=== PATIENT | female | born 1965 | race Caucasian/White ===

== ENCOUNTER → 2020-09-30 15:23 | Outpatient (BNVA) | payer OTHER, SELFPAY | PROVIDERS: PCP Internal Medicine; Visit Provider Surgery | DX: Z76.89 Persons encountering health services in other specified circumstances (principal) ==

== ENCOUNTER → 2020-10-06 14:23 | Outpatient (BNVA) | payer OTHER, SELFPAY | PROVIDERS: PCP Physician Assistant; Referring Provider Physician Assistant; Visit Provider Orthopaedic Surgery | DX: Z76.89 Persons encountering health services in other specified circumstances (principal) ==

== ENCOUNTER 2020-10-08 08:05 | Outpatient (REF) | payer OTHER, SELFPAY ==
[2020-10-08 08:37] VITALS: BP 129/81; PULSE 89; RESP 16; TEMP 37; O2SAT 99
[2020-10-08 08:45] VITALS: BMI 24.5
[2020-10-08 09:06] VITALS: PULSE 75; RESP 16; O2SAT 100
--- NOTE | 2020-10-08 09:11 | PM.OP ---
Brief Operative Note Date of Service: 10/08/20 Pre-op diagnosis: Lesion left shoulder Post-op diagnosis: same Procedure: excision of lesion left shoulder Implants: non Surgeon: Carloz Barger MD Anesthesia: local Estimated blood loss (mL): 10 Pathology: other ( lesion left shoulder) Condition: stable Disposition: other ( home)
--- NOTE | 2020-10-08 09:12 | W.PM.OPN ---
Operative Note Operative Note Date of Service: 10/08/20 Narrative: preoperative diagnosis: Lesion left shoulder Postoperative diagnosis: Same Procedure: Excision of lesion left shoulder Surgeon: Carloz Barger MD Indications for procedure: 55-year-old female presenting with a red raised lesion measuring approximately 1 cm in diameter which easily bleeds when lightly touched suggestive of a Pyogenic granuloma. Operative findings: Patient was found to have a 1 cm raised red lesion suggestive of a pyogenic granuloma Specimen: lesion left shoulder Estimated blood loss: 10 cc Complications: None Procedure details: Patient was brought to the minor surgery suite and placed in a supine position. The site of surgery was confirmed by the patient in the left shoulder. After assuring informed consent the skin was prepped with Betadine and draped in a sterile fashion. Local anesthesia consisting of lidocaine 1% with epinephrine was infiltrated in elliptical fashion oriented transversely. An elliptical incision was made including a margin of 0.25 cm on both sides. Incision was carried out through subcutaneous tissue and around the lesion. Lesion was passed off the table and sent to pathology for further examination. After assuring adequate hemostasis with light pressure the skin was closed using interrupted 4 0 nylon sutures. Sterile dressings consisting of 2 x 2 gauze and Tegaderm were then applied. The patient tolerated the procedure well. She was discharged to home in stable condition.
== END 2020-10-08 08:06 | disposition home or self-care (01) ==
LOC: HO.MS 08:05
PROVIDERS: PCP Internal Medicine; Visit Provider Surgery
PROC: (CPT 11402; principal; 2020-10-08 08:30)
DX: L98.9 Disorder of the skin and subcutaneous tissue, unspecified (principal)
CPT/HCPCS: 11402; 88305

== ENCOUNTER 2020-10-20 14:10 | Outpatient (REF) | payer OTHER, SELFPAY ==
--- NOTE | 2020-10-20 14:55 | ECG_ITS ---
Test Reason : PREPROC Blood Pressure : / mmHG Vent. Rate : 070 BPM Atrial Rate : 070 BPM P-R Int : 162 ms QRS Dur : 084 ms QT Int : 414 ms P-R-T Axes : 066 093 061 degrees QTc Int : 447 ms Normal sinus rhythm Rightward axis Borderline ECG When compared with ECG of 16-JAN-2014 07:27, Vent. rate has increased BY 24 BPM Referred By: Zain Woodall Electronically Signed By:Jona Espinoza
[2020-10-20 15:29] LABS: MANUAL DIFF FLAG NO
[2020-10-20 15:41] LABS: Basophils Percent Auto 0.6 % (0-2); Eosinophils Absolute Auto 0.1 X10*3/uL (0.0-0.4); Hematocrit 40.9 % (37-47); Hemoglobin 14.2 g/dl (12.0-16.0); Imm Gran Abs Auto 0.01 X10*3/uL (0.00-0.03); Imm Gran Pct Auto 0.2 % (0.0-0.4); Lymphocytes Absolute Auto 2.5 X10*3/uL (1.2-4.9); Lymphocytes Percent Auto 37.9 % (20-40); Mean Corpuscular HGB Conc 34.7 g/dl (31.0-35.0); Mean Corpuscular Hemoglobin 30.3 pg (27.0-33.0); Mean Corpuscular Volume 87.4 fL (80-98); Mean Platelet Volume 9.8 fL (9.4-12.3); Monocytes Absolute Auto 0.4 X10*3/uL (0.1-1.2); Monocytes Percent Auto 5.7 % (2-11); Neutrophils Absolute Auto 3.6 X10*3/uL (2.0-8.3); Neutrophils Percent Auto 53.6 % (45-73); Platelet Count 258 X10*3/uL (160-400); Red Blood Count 4.68 X10*6/uL (4.20-5.50); Red Cell Distribution Width 11.8 % (11.0-16.0); White Blood Count 6.6 X10*3/uL (4.8-10.8)
[2020-10-20 15:58] LABS: Anion Gap 10 (12-20); Blood Urea Nitrogen 13 mg/dL (9-16); Carbon Dioxide 30 mmol/L (22-29); Chloride 105 mmol/L (96-108); Estimated Glomerular Filt Rate > 60; Glucose Random 84 mg/dL (60-115); Potassium 4.3 mmol/l (3.3-5.1); Sodium 141 mmol/L (135-145)
== END 2020-10-20 14:11 | disposition home or self-care (01) ==
LOC: HO.LAB 14:10
PROVIDERS: Absent Provider Orthopaedic Surgery; PCP Internal Medicine; Referring Provider Internal Medicine; Visit Provider Surgery
DX: Z01.810 Encounter for preprocedural cardiovascular examination (principal); L98.0 Pyogenic granuloma
CPT/HCPCS: 36415; 80048; 85025; 93005

== ENCOUNTER → 2020-11-20 14:14 | Outpatient (BNVA) | payer OTHER, SELFPAY | PROVIDERS: Visit Provider Physician Assistant | DX: Z76.89 Persons encountering health services in other specified circumstances (principal) ==

== ENCOUNTER 2020-12-07 06:46 | Inpatient (IN) | payer OTHER, SELFPAY ==
[2020-11-20 11:52] VITALS: BP 137/79; PULSE 68; RESP 16; BMI 24.7
--- NOTE | 2020-11-20 11:53 | HO.ANESPROP2 ---
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 Unilateral primary osteoarthritis, right hip Family History Family History Father History of pancreatic cancer History of kidney cancer Mother History of cancer of ethmoid sinus Surgical History Surgical History H/O vaginal hysterectomy History of section History of tonsillectomy Hx of colonoscopy Hx of exploratory laparotomy Hx of local excision of skin lesion Hx of wisdom tooth extraction Social History Social History Are you a primary women's health care nurse practitioner to a significant other at home: No Do you presently have visiting nurse or other home services: No Smoking Status: Never smoker Use of substances other than those prescribed or required for medical reasons: No Have you been hit, kicked, punched, or otherwise hurt by someone within the past year? 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 Meds Allergies Allergy/AdvReac Type Severity Reaction Status Date / Time blue dye [BLUE DYE] Allergy Severe ANAPHYLAXIS Verified 11/20/20 13:56 latex [LATEX] Allergy Severe ANAPHYLAXIS Verified 11/20/20 13:56 red dye [RED DYE] Allergy Severe ANAPHYLAXIS Verified 11/20/20 13:56 tree nut [TREE NUT] Allergy Severe ANAPHYLAXIS Verified 11/20/20 13:56 progesterone [PROGESTERONE] Allergy Unknown mental Verified 11/20/20 13:56 confusion FRUIT Allergy Severe ANAPHYLAXIS Uncoded 11/19/20 16:17 GREEN DYE Allergy Severe ANAPHYLAXIS Uncoded 11/19/20 16:17 VEGETABLES,FRESH Allergy Severe ANAPHYLAXIS Uncoded 11/19/20 16:17 Home Medications Medication Instructions Recorded Confirmed Type albuterol sulfate 90 mcg/actuation 1 puff INHALATION Q4-6H PRN 09/23/20 11/19/20 History aerosol inhaler epinephrine 0.3 mg/0.3 mL 0.3 mg IM NEEDED PRN 09/23/20 11/19/20 History injection, auto-injector fluticasone 500 mcg-salmeterol 50 1 inh INHALATION BID 09/23/20 11/19/20 History mcg/dose blistr powdr for inhalation nitroglycerin 0.4 mg sublingual 0.4 mg SUBLINGUAL NEEDED PRN 09/23/20 11/19/20 History tablet Exam Exam Date and Time: November 20, 2020 1153 Pertinent Lab Results Pertinent Lab Results: Laboratory Tests 10/20/20 10/20/20 15:00 15:00 WBC 6.6 Hgb 14.2 Hct 40.9 Plt Count 258 Sodium 141 Potassium 4.3 Chloride 105 Carbon Dioxide 30 H BUN 13 Creatinine 0.69 Narrative Narrative: EKG 10/20/20: Normal sinus rhythm Rightward axis Borderline ECG When compared with ECG of 16-JAN-2014 07:27, Vent. rate has increased BY 24 BPM ECHO 05/2020: LV is nml in size, wall thickness, and systolic function. LVEF 55-60%. No WMA. RV size and function grossly nml. 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 Unilateral primary osteoarthritis, right hip Family History Family History Father History of pancreatic cancer History of kidney cancer Mother History of cancer of ethmoid sinus Surgical History Surgical History H/O vaginal hysterectomy History of section History of tonsillectomy Hx of colonoscopy Hx of exploratory laparotomy Hx of local excision of skin lesion Hx of wisdom tooth extraction Social History Social History Are you a primary women's health care nurse practitioner to a significant other at home: No Do you presently have visiting nurse or other home services: No Smoking Status: Never smoker Use of substances other than those prescribed or required for medical reasons: No Have you been hit, kicked, punched, or otherwise hurt by someone within the past year? 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[employer] Meds Allergies Allergy/AdvReac Type Severity Reaction Status Date / Time blue dye [BLUE DYE] Allergy Severe ANAPHYLAXIS Verified 11/20/20 13:56 latex [LATEX] Allergy Severe ANAPHYLAXIS Verified 11/20/20 13:56 red dye [RED DYE] Allergy Severe ANAPHYLAXIS Verified 11/20/20 13:56 tree nut [TREE NUT] Allergy Severe ANAPHYLAXIS Verified 11/20/20 13:56 progesterone [PROGESTERONE] Allergy Unknown mental Verified 11/20/20 13:56 confusion FRUIT Allergy Severe ANAPHYLAXIS Uncoded 11/19/20 16:17 GREEN DYE Allergy Severe ANAPHYLAXIS Uncoded 11/19/20 16:17 VEGETABLES,FRESH Allergy Severe ANAPHYLAXIS Uncoded 11/19/20 16:17 Home Medications Medication Instructions Recorded Confirmed Type albuterol sulfate 90 mcg/actuation 1 puff INHALATION Q4-6H PRN 09/23/20 11/19/20 History aerosol inhaler epinephrine 0.3 mg/0.3 mL 0.3 mg IM NEEDED PRN 09/23/20 11/19/20 History injection, auto-injector fluticasone 500 mcg-salmeterol 50 1 inh INHALATION BID 09/23/20 11/19/20 History mcg/dose blistr powdr for inhalation nitroglycerin 0.4 mg sublingual 0.4 mg SUBLINGUAL NEEDED PRN 09/23/20 11/19/20 History tablet Assessment and Plan Assessment Anesthesia Assessment: Anesthesia Plan Discussed and Chart Reviewed Final Anesthetic Review NPO: Yes ASA Class: II Final Preanesthetic Review: No Changes in Pt Med Stat, Meds/Allgs Chart Reviewed, Consent Obtained/Reviewed and Anes Risks/Benef Reviewed Procedure Risk: Intermediate Anesthetic Plan Anesthetic Plan: MAC: and Spinal Disposition: Standard PACU
--- NOTE | 2020-11-20 12:35 | XR_ITS ---
EXAMINATION: XR AP PELVIS XR HIP, RIGHT CLINICAL INFORMATION: Right hip pain. Osteoarthritis. COMPARISON: Right hip 04/20/2012. TECHNIQUE: AP pelvis one view. Right hip 2 views. FINDINGS: AP PELVIS: There is severe loss of right hip joint space. Minimal loss of left hip joint space seen with moderate bony osteophyte lateral to the hip joint. SI joints are symmetrical and normal. No pelvic bony abnormality seen. RIGHT HIP: There is severe loss of right hip joint space with subchondral cystic changes, mild flattening of right femoral head with moderate periarticular spurring. No acute fracture or dislocation seen. Mild sclerosis of the acetabulum is seen. The soft tissues are normal. XR/XR hip RT min 2V IMPRESSION: 1. Severe degenerative osteoarthritic changes of the right hip joint with [id number] apposition and subchondral cystic changes with sclerosis. 2. Early degenerative changes of the left hip joint. 3. There is no acute fracture involving pelvis or the hip joints.
--- NOTE | 2020-11-20 12:35 | XR_ITS ---
EXAMINATION: XR AP PELVIS XR HIP, RIGHT CLINICAL INFORMATION: Right hip pain. Osteoarthritis. COMPARISON: Right hip 04/20/2012. TECHNIQUE: AP pelvis one view. Right hip 2 views. FINDINGS: AP PELVIS: There is severe loss of right hip joint space. Minimal loss of left hip joint space seen with moderate bony osteophyte lateral to the hip joint. SI joints are symmetrical and normal. No pelvic bony abnormality seen. RIGHT HIP: There is severe loss of right hip joint space with subchondral cystic changes, mild flattening of right femoral head with moderate periarticular spurring. No acute fracture or dislocation seen. Mild sclerosis of the acetabulum is seen. The soft tissues are normal. XR/XR pelvis 1-2V IMPRESSION: 1. Severe degenerative osteoarthritic changes of the right hip joint with [id number] apposition and subchondral cystic changes with sclerosis. 2. Early degenerative changes of the left hip joint. 3. There is no acute fracture involving pelvis or the hip joints.
[2020-11-21 10:51] LABS: MRSA Nasal PCR NEGATIVE (Negative); SA Nasal PCR POSITIVE (Negative)
[2020-12-07] VITALS (15 sets, daily range): BP systolic 85–130; BP diastolic 54–77; PULSE 51–82; RESP 11–20; TEMP 36.2–36.8; O2SAT 95–100
[2020-12-07 06:46] LABS: COVID-19 Test Negative (Negative)
[2020-12-07] MEDS: oxyCODONE HCl ER 10 MG TAB.ER.12H PO (06:55)
--- NOTE | 2020-12-07 07:02 | MHC.SHP ---
Pre-Procedural Eval Section A The patient is an INPATIENT: No Changes since office visit: No Cold of Flu in the past 2 weeks, No New Medical Problems, No Changes in Medication and No Patient answered all questions The History & Physical has been completed within 30 days and I have reviewed it.: Yes Section B Chief Complaint: S/P R total hip replacement Allergies: Allergies Allergy/AdvReac Type Severity Reaction Status Date / Time blue dye [BLUE DYE] Allergy Severe ANAPHYLAXIS Verified 11/20/20 13:56 latex [LATEX] Allergy Severe ANAPHYLAXIS Verified 11/20/20 13:56 red dye [RED DYE] Allergy Severe ANAPHYLAXIS Verified 11/20/20 13:56 tree nut [TREE NUT] Allergy Severe ANAPHYLAXIS Verified 11/20/20 13:56 progesterone [PROGESTERONE] Allergy Unknown mental Verified 11/20/20 13:56 confusion FRUIT Allergy Severe ANAPHYLAXIS Uncoded 11/19/20 16:17 GREEN DYE Allergy Severe ANAPHYLAXIS Uncoded 11/19/20 16:17 VEGETABLES,FRESH Allergy Severe ANAPHYLAXIS Uncoded 11/19/20 16:17 Plan I have reviewed the history and physical and performed a pertinent physical examination on my patient. No changes have occurred unless specified.
--- NOTE | 2020-12-07 09:15 | P.PCNOP_ITS ---
Brief Operative Note Date of procedure: 12/07/20 Pre-op diagnosis: OA RIGHT HIP Post-op diagnosis: same Procedure: RIGHT BASHIR Anesthesia: spinal Surgeon: Zain Woodall Amphibious Operations Officer: Aliza Brewer Estimated blood loss (mL): 100 Condition: stable Disposition: PACU
--- NOTE | 2020-12-07 10:03 | OP_ITS ---
SURGEON: Zain Woodall MD PREOPERATIVE DIAGNOSIS: Osteoarthritis, right hip. POSTOPERATIVE DIAGNOSIS: Osteoarthritis, right hip. PROCEDURE PERFORMED: Right total hip arthroplasty - Accolade II size 4 x 132 femoral stem, 32 mm standard BIOLOX head, 48 mm Tritanium acetabulum, 32 mm x 0 degree acetabular liner. ESTIMATED BLOOD LOSS: COMPLICATIONS: ANESTHESIA: ASSISTANTS: WELLINGTON Jane. SPECIMENS: CLINICAL NOTE: This lady has had ongoing problem with osteoarthritis involving the right hip. She had failed nonoperative management. Therefore, after explaining the risks, benefits, and alternatives and answering all questions, it was mutually agreed upon to carry out the following procedure. DESCRIPTION OF PROCEDURE: Under spinal anesthetic, the patient was placed in the left lateral decubitus position with the right hip up. The right hip was prepped and draped in standard fashion with the right leg free. Surgical time-out was then performed. The patient was identified, procedure confirmed, site confirmed. Medical analogy and history reviewed. Preoperative antibiotics were given. Tranexamic acid was given as well. Standard DVT prophylaxis was in place. All other items were discussed and agreed upon. Standard anterolateral approach to the hip was carried out, taken down through subcutaneous tissues. Hemostasis was achieved along the way using electrocautery, brought us down to the level of the fascia wilmer, which was divided along the length of the incision. The anterior two-thirds of the abductor musculature was then identified and released through tendon off the greater trochanter and elevated off the capsule down to the level of the acetabulum. Capsulectomy was then performed. The hip was dislocated and the head and neck was then resected according to preoperative templating. We turned our attention to the acetabulum. The remainder of the capsule and labrum was removed. Osteophytes were removed from the superior aspect of the acetabulum. The acetabular fossa was identified. osteotome was used to remove the remainder of the soft tissues. Starting with a 44 mm reamer, it was sequentially reamed up to a 47 mm size. There was good fit and fill. It reached the acetabular fossa. Alignment guide was used to show that the alignment and reaming was appropriate and therefore the final reamer with a 48 was used. There was good circumferential bleeding, fit, and fill, and therefore the 48 mm Tritanium acetabulum was selected and brought up on to the table. The acetabulum was thoroughly irrigated. The permanent component brought up on the table. It was press-fit into place with excellent alignment, fit, and fill. A trial liner with a 0 degree 32 mm poly was put into place and we turned our attention to the femur. Box osteotome was used in standard fashion. T-reamer was used to sound the canal. The broaches were then used from 0 to a 4. At this point, there was excellent fit and fill and rotational alignment. A trial reduction was then performed using the standard 32 mm head. This demonstrated excellent leg lengths, full range of motion, stable in all positions, and therefore the Accolade II size 4 x 132 femoral component with the 32 mm BIOLOX head with the 32 x 0 degree acetabular liner were also selected and brought up on the table. All the trial components were then removed. The acetabulum was thoroughly irrigated. The permanent liner was tapped into place. Following this, the femur was fully irrigated. The component was tapped into place. The Anna taper cleaned and dried. The BIOLOX head placed. The hip was relocated for final time, which demonstrated excellent fit, fill, rotational alignment and stability. The leg lengths were good as well. Therefore, we proceeded to closure. Abductor musculature closed with #2 Dexon. Fascia wilmer closed with #2 Quill suture. Subcutaneous tissue approximated using interrupted 2-0 Dexon. Skin was closed with jose. Sterile dressing was then applied. The patient was then transferred supine to the room bed, then taken to recovery room in good condition. Intraoperatively, there was approximately 100 mL blood loss. Second unit of tranexamic acid was given at the time of closure. There were no complications. MD MELA Neri/MAYRA / [id number]
[2020-12-07] MEDS: ondansetron HCL 4 MG/2 ML VIAL IVPUSH (11:38)
[2020-12-07] MEDS: Lactated Ringers 1,000 ML 100 ML IVCONT (12:42)
[2020-12-07] MEDS: Morphine Sulfate 2 MG/ML CARTRIDGE IVPUSH ×3 (14:09→23:13)
[2020-12-07] MEDS: ceFAZolin Sodium/Dextrose,Iso 2 GM/50 ML PIGGYBACK IV (14:09)
--- NOTE | 2020-12-07 15:06 | PM.IMCN ---
History of Present Illness Data of Consult Service Date: 12/07/20 Requesting physician: Zain Woodall Primary Care Provider: Randal Tanner MD HPI Reason for consult: Medical Management 55-year-old woman admitted by Orthopedic surgery and is status post right total hip arthroplasty. Surgery was unremarkable. Patient has a moderate amount of pain. Patient reports that she was feeling dizzy and lightheaded after receiving morphine. She also had an episode vomiting witnessed during the interview. She was medicated with antiemetics. 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 Unilateral primary osteoarthritis, right hip Family History Father History of pancreatic cancer History of kidney cancer Mother History of cancer of ethmoid sinus Surgical History H/O vaginal hysterectomy History of section History of tonsillectomy Hx of colonoscopy Hx of exploratory laparotomy Hx of local excision of skin lesion Hx of wisdom tooth extraction Social History Household Members: Family Housing: House Are you a primary child care provider to a significant other at home: No Do you presently have visiting nurse or other home services: No Smoking Status: Never smoker Use of substances other than those prescribed or required for medical reasons: No Have you been hit, kicked, punched, or otherwise hurt by someone within the past year? 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 Allergies Allergy/AdvReac Type Severity Reaction Status Date / Time blue dye [BLUE DYE] Allergy Severe ANAPHYLAXIS Verified 12/07/20 11:52 latex [LATEX] Allergy Severe ANAPHYLAXIS Verified 12/07/20 11:52 red dye [RED DYE] Allergy Severe ANAPHYLAXIS Verified 12/07/20 11:52 tree nut [TREE NUT] Allergy Severe ANAPHYLAXIS Verified 12/07/20 11:52 progesterone [PROGESTERONE] Allergy Unknown mental Verified 12/07/20 11:52 confusion FRUIT Allergy Severe ANAPHYLAXIS Uncoded 12/07/20 11:52 GREEN DYE Allergy Severe ANAPHYLAXIS Uncoded 12/07/20 11:52 VEGETABLES,FRESH Allergy Severe ANAPHYLAXIS Uncoded 12/07/20 11:52 Home Medications Medication Instructions Recorded Confirmed Type albuterol sulfate 90 mcg/actuation 1 puff INHALATION Q4-6H PRN 09/23/20 11/19/20 History aerosol inhaler epinephrine 0.3 mg/0.3 mL 0.3 mg IM NEEDED PRN 09/23/20 11/19/20 History injection, auto-injector fluticasone 500 mcg-salmeterol 50 1 inh INHALATION BID 09/23/20 11/19/20 History mcg/dose blistr powdr for inhalation nitroglycerin 0.4 mg sublingual 0.4 mg SUBLINGUAL NEEDED PRN 09/23/20 11/19/20 History tablet Physical Exam Vital Signs and Narrative: Vital Signs: Last Vital Signs Temp 97.8 F 12/07/20 12:22 Pulse 51 12/07/20 12:22 Resp 18 12/07/20 12:22 BP 97/60 12/07/20 10:17 Pulse Ox 100 12/07/20 12:22 Body Mass Index 24.7 Appearing in no acute distress head is normocephalic atraumatic eyes pupils are PERRLA sclera is anicteric mouth throat mucous membranes are intact and moist neck is supple no lymphadenopathy, no JVD noted lung sounds are clear to auscultation heart regular rate rhythm, clear S1, S2 positive bowel sounds, abdomen is soft, nontender neuro patient is alert x3, no focal deficits MSK Right hip dressing dry and intact Results Labs Labs: Laboratory Results - last 24 hr 12/07/20 12/07/20 06:14 06:27 COVID-19 ([facility]) Negative COVID-19 Clin Com See Note Blood Type A Negative Antibody Screen NEGATIVE Assessment and Plan (1) Osteoarthritis of right hip: Qualifiers: Osteoarthritis type: primary Qualified Code(s): M16.11 - Unilateral primary osteoarthritis, right hip Status: Acute 55-year-old woman status post right total hip arthroplasty. Right total hip arthroplasty. Management as per surgical team. Pain management. Dizziness. After receiving a dose of morphine. Likely related to blood pressure drop. Will hold antihypertensives for now, give 500 cc fluid bolus. Give morphine over 1 minute for next doses. Hypertension. Softer blood pressure. Hold amlodipine. Asthma. No exacerbation. Albuterol as needed. DVT prophylaxis with full-dose aspirin. Case discussed with Dr. Wilman Patricia code
[2020-12-07] MEDS: Lactated Ringers 1,000 ML 999 ML IVCONT (15:18)
[2020-12-07 15:28] LABS: Hemoglobin 11.9 g/dl (12.0-16.0)
--- NOTE | 2020-12-07 15:54 | MHC.CM.PN ---
PATIENT REPORTS BEING INDEPENDENT WITH HER ADLS. HCP IS ON FILE AND VERIFIED. CASE MANAGEMENT TO FOLLOW FOR DISCHARGE NEEDS.
--- NOTE | 2020-12-07 16:20 | PC.NURSE ---
PACU assessments entered as late entries as RN was unable to document real time d/t network issues.
[2020-12-07] MEDS: Acetaminophen 325 MG TABLET 650 MG PO ×2 (16:34→22:19)
[2020-12-07] MEDS: oxyCODONE HCl Immed Release 5 MG TABLET 10 MG PO ×2 (16:35→22:19)
[2020-12-07] MEDS: Ketorolac Tromethamine 15 MG/ML VIAL IVPUSH ×2 (17:27→22:19)
[2020-12-07] MEDS: Atorvastatin Calcium 20 MG TABLET PO (22:19)
[2020-12-07] MEDS: 0.9 % Sodium Chloride Flush 3 ML SYRINGE IVFLUSH (23:13)
[2020-12-08] MEDS: Lactated Ringers 1,000 ML 100 ML IVCONT (03:16)
[2020-12-08 03:57] VITALS: BP 114/59; PULSE 89; RESP 20; TEMP 36.8; O2SAT 96
[2020-12-08] MEDS: Ketorolac Tromethamine 15 MG/ML VIAL IVPUSH ×4 (05:47→23:40)
[2020-12-08] MEDS: Acetaminophen 325 MG TABLET 650 MG PO ×4 (05:48→23:40)
[2020-12-08] MEDS: oxyCODONE HCl Immed Release 5 MG TABLET 10 MG PO ×3 (05:48→23:40)
--- NOTE | 2020-12-08 07:00 | XR_ITS ---
EXAMINATION: XR HIP, RIGHT CLINICAL INFORMATION: Postop COMPARISON: Pelvic x-ray with right hip 11/20/2020 TECHNIQUE: Two views of the right hip. FINDINGS: Patient is status post right total hip arthroplasty. Components in expected orientation. There is no periprosthetic fracture. Expected subcutaneous emphysema. Skin jose. There are mild to moderate degenerative changes of the left hip. Small vascular calcifications of the pelvis. XR/XR hip RT w PEL1V IMPRESSION: Expected postoperative appearance of the right hip.
[2020-12-08 07:38] VITALS: BP 103/53; PULSE 87; RESP 18; TEMP 36.8; O2SAT 97
--- NOTE | 2020-12-08 07:53 | PM.PNORT ---
Subjective Subjective Date of Service: 12/08/20 Principal diagnosis: s/p RT BASHIR Interval history: POD 1 s/p RT BASHIR no overnight events, has not been out of bed, she is doing well, pain is tolerable. No concerns. Physical Exam Vital Signs: Vital Signs: Last Vital Signs Temp 98.3 F 12/08/20 07:38 Pulse 87 12/08/20 07:38 Resp 18 12/08/20 07:38 BP 103/53 L 12/08/20 07:38 Pulse Ox 97 12/08/20 07:38 Body Mass Index 24.7 Const: General: cooperative, healthy appearing and no acute distress Resp: Effort & Inspection: normal respiratory effort and able to speak in complete sentences Cardio: Rate: regular rate Peripheral pulses: Peripheral pulses 2+ throughout GI: Palpation (GI): Soft to palpation Skin: General skin exam: no rashes or lesions noted Extrem: Other: Bandage clean , dry and intact, no erythema, no edema, sensation intact. Progress Note: A&P Assessment and plan (1) History of total right hip replacement: Status: Acute Assessment and Plan: Continue pain mgmnt Begin asa dvt ppx begin PT for RT BASHIR Dispo planning-Pending PT eval, pain mgmnt Fall Risk Details Current Medications: Current Medications Generic Name Dose Route Start Last Admin Trade Name Freq PRN Reason Stop Dose Admin Acetaminophen 650 mg 12/07/20 11:00 12/08/20 05:48 Acetaminophen 325 Mg Tablet PO 650 mg Q6H NOELLE Administration Albuterol Sulfate 1 puff 12/07/20 15:04 Albuterol Sulfate 90 Mcg 8 Gm Inhaler INHALE Q4H PRN Shortness Of Breath Or Wheezin Aspirin 325 mg 12/08/20 10:00 Aspirin 325 Mg Tablet PO BID NOELLE Atorvastatin Calcium 20 mg 12/07/20 21:00 12/07/20 22:19 Atorvastatin Calcium 20 Mg Tablet PO 20 mg BEDTIME NOELLE Administration Fluticasone/Vilanterol 1 puff 12/08/20 08:00 Fluticasone/Vilanterol 200/25 Blst.W.Dev INHALE RDAILY NOELLE Lactated Ringer's 1,000 mls @ 100 mls/hr 12/07/20 06:30 12/08/20 03:16 Lr IVCONT 100 mls/hr .Q10H NOELLE Administration Ketorolac Tromethamine 15 mg 12/07/20 11:00 12/08/20 05:47 Ketorolac Tromethamine 15 Mg/Ml Vial IVPUSH 15 mg Q6H NOELLE Administration Morphine Sulfate 2 mg 12/07/20 11:00 12/07/20 23:13 Morphine Sulfate 2 Mg/Ml Cartridge IVPUSH 2 mg Q2H PRN Administration Pain, Severe (Pain Scale 7-10) Naloxone HCl 0.2 mg 12/07/20 11:00 Naloxone Hcl 0.4 Mg/Ml Vial IVPUSH Q2M PRN Excessive sedation or RR < 8 Nitroglycerin 0.4 mg 12/07/20 15:04 Nitroglycerin 0.4 Mg Tab.Subl SUBLINGUAL Q5MX3 PRN Chest Pain Ondansetron HCl 4 mg 12/07/20 11:00 12/07/20 11:38 Ondansetron Hcl 4 Mg/2 Ml Vial IVPUSH 4 mg Q8H PRN Administration Nausea and Vomiting Oxycodone HCl 10 mg 12/07/20 11:00 12/08/20 05:48 Oxycodone Hcl Immed Release 5 Mg Tablet PO 10 mg Q6H NOELLE Administration Sodium Chloride 3 ml 12/07/20 16:00 12/07/20 23:13 0.9 % Sodium Chloride Flush 3 Ml Syringe IVFLUSH 3 ml QSHIFT NOELLE Administration Time Spent With Patient Time: Total time spent is greater than 50% in coordination of care (as documented) at patient's floor/unit and/or counseling patient: Time with patient: less than 15 minutes
[2020-12-08] MEDS: Fluticasone/Vilanterol 200/25 BLST.W.DEV 1 PUFF INHALE (08:00)
[2020-12-08] MEDS: 0.9 % Sodium Chloride Flush 3 ML SYRINGE IVFLUSH ×3 (08:13→23:42)
[2020-12-08] MEDS: Aspirin 325 MG TABLET PO ×2 (08:13→20:24)
[2020-12-08] MEDS: ondansetron HCL 4 MG/2 ML VIAL IVPUSH (09:28)
--- NOTE | 2020-12-08 10:29 | HO.POSTANES ---
Post Anesthesia Evaluation Post Anesthesia Evaluation Vital Signs: Vital Signs Temp Pulse Resp BP Pulse Ox 12/08/20 07:38 98.3 F 87 18 103/53 L 97 12/08/20 03:57 98.2 F 89 20 114/59 L 96 12/07/20 23:25 97.6 F 82 20 103/61 95 Anesthesia: Spinal Mental Status: Awake Pain Control: Satisfactory Nausea/Vomiting: None Hydration: Adequate Anesthesia-Related Issues: No Anes. Related Issues
--- NOTE | 2020-12-08 10:42 | HO.PM.IMPN ---
Subjective Subjective Date of Service: 12/08/20 Interval History: Seen in follow-up following knee surgery, she has been experiencing dizziness that she describes vaguely as who lightheadedness. Blood pressure seems okay this morning. Review of Systems Gen: no fever Resp: no sob, no cough CV: no chest, no DE LEON, no leg edema GI: No n/v, no abd pain Neuro: No confusion, dizziness Physical Exam Vital Signs: Vital Signs: Last Vital Signs Temp 98.3 F 12/08/20 07:38 Pulse 87 12/08/20 07:38 Resp 18 12/08/20 07:38 BP 103/53 L 12/08/20 07:38 Pulse Ox 97 12/08/20 07:38 Body Mass Index 24.7 Const: General: cooperative, healthy appearing and no acute distress Limitations: No language barrier Resp: Effort & Inspection: normal respiratory effort and able to speak in complete sentences Cardio: Rate: regular rate Peripheral pulses: Peripheral pulses 2+ throughout GI: Palpation (GI): Soft to palpation Skin: General skin exam: no rashes or lesions noted Extrem: Other: Bandage clean , dry and intact, no erythema, no edema, sensation intact. Objective Data Current Medications Generic Name Dose Route Start Last Admin Trade Name Freq PRN Reason Stop Dose Admin Acetaminophen 650 mg 12/07/20 11:00 12/08/20 05:48 Acetaminophen 325 Mg Tablet PO 650 mg Q6H NOELLE Administration Albuterol Sulfate 1 puff 12/07/20 15:04 Albuterol Sulfate 90 Mcg 8 Gm Inhaler INHALE Q4H PRN Shortness Of Breath Or Wheezin Aspirin 325 mg 12/08/20 10:00 12/08/20 08:13 Aspirin 325 Mg Tablet PO 325 mg BID NOELLE Administration Atorvastatin Calcium 20 mg 12/07/20 21:00 12/07/20 22:19 Atorvastatin Calcium 20 Mg Tablet PO 20 mg BEDTIME NOELLE Administration Fluticasone/Vilanterol 1 puff 12/08/20 08:00 12/08/20 08:00 Fluticasone/Vilanterol 200/25 Blst.W.Dev INHALE 1 puff RDAILY NOELLE Administration Lactated Ringer's 1,000 mls @ 100 mls/hr 12/07/20 06:30 12/08/20 03:16 Lr IVCONT 100 mls/hr .Q10H NOELLE Administration Ketorolac Tromethamine 15 mg 12/07/20 11:00 12/08/20 05:47 Ketorolac Tromethamine 15 Mg/Ml Vial IVPUSH 15 mg Q6H NOELLE Administration Morphine Sulfate 2 mg 12/07/20 11:00 12/07/20 23:13 Morphine Sulfate 2 Mg/Ml Cartridge IVPUSH 2 mg Q2H PRN Administration Pain, Severe (Pain Scale 7-10) Naloxone HCl 0.2 mg 12/07/20 11:00 Naloxone Hcl 0.4 Mg/Ml Vial IVPUSH Q2M PRN Excessive sedation or RR < 8 Nitroglycerin 0.4 mg 12/07/20 15:04 Nitroglycerin 0.4 Mg Tab.Subl SUBLINGUAL Q5MX3 PRN Chest Pain Ondansetron HCl 4 mg 12/07/20 11:00 12/08/20 09:28 Ondansetron Hcl 4 Mg/2 Ml Vial IVPUSH 4 mg Q8H PRN Administration Nausea and Vomiting Oxycodone HCl 10 mg 12/07/20 11:00 12/08/20 05:48 Oxycodone Hcl Immed Release 5 Mg Tablet PO 10 mg Q6H NOELLE Administration Sodium Chloride 3 ml 12/07/20 16:00 12/08/20 08:13 0.9 % Sodium Chloride Flush 3 Ml Syringe IVFLUSH 3 ml QSHIFT NOELLE Administration Labs CBC & Chem 7: 12/08/20 05:50 Assessment and Plan (1) History of total right hip replacement: Status: Acute (2) Osteoarthritis of right hip: Status: Acute Assessment and Plan: 55-F with HTN, HLD s/p right hip athroplasty now with dizziness Dizziness with n/v, likely related to morphine Right total hip arthroplasty. Management as per surgical team including DVT prophylaxis, pain med Hypertension. Hold BP meds for now Asthma. No exacerbation. Albuterol as needed.
[2020-12-08 11:26] VITALS: BP 91/53; PULSE 79; RESP 18; TEMP 35.7; O2SAT 97
[2020-12-08 15:36] VITALS: BP 95/55; PULSE 76; RESP 18; TEMP 36.7; O2SAT 98
[2020-12-08 19:30] VITALS: BP 91/46; PULSE 79; RESP 16; TEMP 37; O2SAT 95
[2020-12-08] MEDS: Atorvastatin Calcium 20 MG TABLET PO (20:23)
[2020-12-08 23:11] VITALS: BP 97/54; PULSE 84; RESP 18; TEMP 36.8; O2SAT 99
[2020-12-09 03:23] VITALS: BP 95/54; PULSE 75; RESP 16; TEMP 36.9; O2SAT 98
[2020-12-09] MEDS: Acetaminophen 325 MG TABLET 650 MG PO ×2 (05:04→11:24)
[2020-12-09] MEDS: oxyCODONE HCl Immed Release 5 MG TABLET 10 MG PO (05:05)
[2020-12-09] MEDS: Ketorolac Tromethamine 15 MG/ML VIAL IVPUSH ×2 (05:05→11:20)
[2020-12-09] MEDS: 0.9 % Sodium Chloride Flush 3 ML SYRINGE IVFLUSH (05:06)
[2020-12-09] MEDS: Fluticasone/Vilanterol 200/25 BLST.W.DEV 1 PUFF INHALE (07:58)
[2020-12-09 08:00] VITALS: BP 90/56; PULSE 83; RESP 18; TEMP 36.6; O2SAT 94
[2020-12-09 08:12] LABS: MANUAL DIFF FLAG NO
--- NOTE | 2020-12-09 08:17 | P.DS_ITS ---
DS: Providers Provider Date of Service: 12/09/20 Date of admission: 12/07/20 06:46 Primary care physician: Randal Tanner MD Consults: 12/07/20 11:00 Consult to Hospitalist Routine Consulting Provider: Hospitalist DS: Diagnosis Discharge Diagnosis (1) History of total right hip replacement: Status: Acute Problem details: Ms. Ortiz presented to the office today right hip pain, she was found to have osteoarthritis of the right hip. She had failed all conservative measures and continued to have difficulty with daily activities; therefore she consented to move forward with RT BASHIR. DS: Medications Discharge Medications Home Medications: Home Medications Medication Instructions Recorded Confirmed albuterol sulfate 90 mcg/actuation 1 puff INHALATION Q4-6H PRN 09/23/20 11/19/20 aerosol inhaler epinephrine 0.3 mg/0.3 mL 0.3 mg IM NEEDED PRN 09/23/20 11/19/20 injection, auto-injector fluticasone 500 mcg-salmeterol 50 1 inh INHALATION BID 09/23/20 11/19/20 mcg/dose blistr powdr for inhalation nitroglycerin 0.4 mg sublingual 0.4 mg SUBLINGUAL NEEDED PRN 09/23/20 11/19/20 tablet Previous Rx's Medication Instructions Recorded amlodipine 5 mg tablet 5 mg PO DAILY #90 tab 08/18/20 atorvastatin 20 mg tablet 20 mg PO BEDTIME 180 Days #180 tab 08/18/20 acetaminophen 650 mg PO Q6H 30 Days #240 tab 12/09/20 aspirin 325 mg PO BID 30 Days #60 tab 12/09/20 oxycodone 10 mg PO Q6H 7 Days #56 tab 12/09/20 DS: Summary Hospital Course Hospital Course: The patient underwent a successful RT BASHIR, was transferred to PACU and then to the floor to recover. During their stay, their vitals were stable, afebrile at 97.8. Labs were unremarkable, H/H 10.0/29.3. POD 1she was started on ASA for DVT ppx, they also received PT/OT services twice a day. Prior to discharge, their dressing was change, incision clean dry and intact, new Aquacel dressing applied and the plan was to be discharged home with VNA services,. Time Spent with Patient Time attestation: Total time spent providing and/or coordinating discharge services: Discharge coordination time: Greater than 30 minutes Physical Exam Vital Signs: Vital Signs: Last Vital Signs Temp 97.8 F 12/09/20 08:00 Pulse 83 12/09/20 08:00 Resp 18 12/09/20 08:00 BP 90/56 L 12/09/20 08:00 Pulse Ox 94 12/09/20 08:00 Body Mass Index 24.7 Const: General: cooperative, healthy appearing and no acute distress Resp: Effort & Inspection: normal respiratory effort and able to speak in complete sentences Cardio: Rate: regular rate Peripheral pulses: Peripheral pulses 2+ throughout GI: Palpation (GI): Soft to palpation Skin: General skin exam: no rashes or lesions noted Extrem: Other: Right hip incision clean dry and intact. No erythema mild edema, sensation intact DS: Data Data Completed and Pending Completed studies during hospitalization [Text1]: Pending at discharge 12/07/20 08:56 Surgical [PTH] Routine Labs on day of discharge: Laboratory Tests 11/20/20 11/20/20 12/07/20 14:10 Unknown 06:14 Hgb Hct Nasal Screen MRSA (PCR) NEGATIVE Nasal S. aureus Screen POSITIVE A Nasal MRSA/S.aureus Interp SEE NOTE COVID-19 ([facility]) Negative COVID-19 Clin Com See Note Blood Type A Negative Antibody Screen NEGATIVE 12/07/20 12/07/20 12/08/20 06:27 15:16 05:50 Hgb 11.9 L 10.0 L Hct 35.0 L 30.0 L Nasal Screen MRSA (PCR) Nasal S. aureus Screen Nasal MRSA/S.aureus Interp COVID-19 ([facility]) COVID-19 Clin Com Blood Type A Negative Antibody Screen NEGATIVE Discharge Plan Discharge Patient Disposition: Home Health Service Referrals: Aliza Brewer PA-C [Physician [employer]] - (12/23/20 1:00) Discharge Medications: New acetaminophen 325 mg Tablet 650 mg PO Q6H 30 Days Qty: 240 RF: 0 aspirin 325 mg Tablet 325 mg PO BID 30 Days Qty: 60 RF: 0 oxycodone 5 mg Tablet 10 mg PO Q6H 7 Days Qty: 56 RF: 0 Continued atorvastatin 20 mg tablet 20 mg PO BEDTIME 180 Days Qty: 180 RF: 1 amlodipine 5 mg tablet 5 mg PO DAILY Qty: 90 RF: 1 nitroglycerin 0.4 mg tablet, sublingual 0.4 mg sublingual NEEDED PRN (Reason: Chest Pain) RF: 0 epinephrine 0.3 mg/0.3 mL auto-injector 0.3 mg IM NEEDED PRN (Reason: Anaphylaxis) RF: 0 albuterol sulfate 90 mcg/actuation HFA aerosol inhaler 1 puff inhalation Q4-6H PRN (Reason: Shortness Of Breath Or Wheezing) RF: 0 fluticasone propion-salmeterol 500-50 mcg/dose blister with device 1 inh inhalation BID RF: 0 Discharge Orders: Discharge Order (Routine); Ordered 12/09/20 Ordered By: Aliza Brewer Diet: regular diet Activity on Discharge: Use cane or walker Stand Alone Forms: Patient Portal Discharge page Activity Restrictions/Additional Instructions: * Physical Therapy for Total hip arthroplasty: no precautions, gait training, ROM, strength * Limit stair climbing * No showering, no tub bath-keep dressing clean, dry and intact * No driving x6 weeks * Continue Aspirin 325mg tabs twice a day x 4 weeks * Follow up with [facility] in 2 weeks Care Plan Goals: Restore function of hip Health Concerns: none Plan of Treatment: Physical Therapy Pain management DVT prophylaxis
[2020-12-09 08:32] LABS: Basophils Percent Auto 0.2 % (0-2); Eosinophils Absolute Auto 0.2 X10*3/uL (0.0-0.4); Eosinophils Percent Auto 2.7 % (0-4); Hematocrit 29.3 % (37-47); Imm Gran Abs Auto 0.01 X10*3/uL (0.00-0.03); Imm Gran Pct Auto 0.1 % (0.0-0.4); Lymphocytes Absolute Auto 1.7 X10*3/uL (1.2-4.9); Lymphocytes Percent Auto 19.8 % (20-40); Mean Corpuscular HGB Conc 34.1 g/dl (31.0-35.0); Mean Corpuscular Hemoglobin 30.7 pg (27.0-33.0); Mean Corpuscular Volume 89.9 fL (80-98); Mean Platelet Volume 10.4 fL (9.4-12.3); Monocytes Absolute Auto 0.8 X10*3/uL (0.1-1.2); Monocytes Percent Auto 9.7 % (2-11); Neutrophils Absolute Auto 5.7 X10*3/uL (2.0-8.3); Neutrophils Percent Auto 67.5 % (45-73); Platelet Count 163 X10*3/uL (160-400); Red Blood Count 3.26 X10*6/uL (4.20-5.50); Red Cell Distribution Width 12.3 % (11.0-16.0); White Blood Count 8.5 X10*3/uL (4.8-10.8)
[2020-12-09] MEDS: ondansetron HCL 4 MG/2 ML VIAL IVPUSH (08:58)
--- NOTE | 2020-12-09 09:09 | P.PNIM_ITS ---
Subjective Subjective Date of Service: 12/09/20 Interval History: Seen in follow-up following knee surgery, she has been experiencing dizziness that she describes vaguely as who lightheadedness but feels better this morning. Blood is on the low side this morning. Review of Systems Gen: no fever Resp: no sob, no cough CV: no chest, no DE LEON, no leg edema GI: No n/v, no abd pain Neuro: No confusion, no dizziness Physical Exam Vital Signs: Vital Signs: Last Vital Signs Temp 97.8 F 12/09/20 08:00 Pulse 83 12/09/20 08:00 Resp 18 12/09/20 08:00 BP 90/56 L 12/09/20 08:00 Pulse Ox 94 12/09/20 08:00 Body Mass Index 24.7 Const: General: cooperative, healthy appearing and no acute distress Limi tations: No language barrier Resp: Effort & Inspection: normal respiratory effort and able to speak in complete sentences Cardio: Rate: regular rate Peripheral pulses: Peripheral pulses 2+ throughout GI: Palpation (GI): Soft to palpation Skin: General skin exam: no rashes or lesions noted Extrem: Other: Bandage clean , dry and intact, no erythema, no edema, sensation intact. Objective Data Current Medications Generic Name Dose Route Start Last Admin Trade Name Freq PRN Reason Stop Dose Admin Acetaminophen 650 mg 12/07/20 11:00 12/09/20 05:04 Acetaminophen 325 Mg Tablet PO 650 mg Q6H NOELLE Administration Albuterol Sulfate 1 puff 12/07/20 15:04 Albuterol Sulfate 90 Mcg 8 Gm Inhaler INHALE Q4H PRN Shortness Of Breath Or Wheezin Aspirin 325 mg 12/08/20 10:00 12/08/20 20:24 Aspirin 325 Mg Tablet PO 325 mg BID NOELLE Administration Atorvastatin Calcium 20 mg 12/07/20 21:00 12/08/20 20:23 Atorvastatin Calcium 20 Mg Tablet PO 20 mg BEDTIME NOELLE Administration Fluticasone/Vilanterol 1 puff 12/08/20 08:00 12/09/20 07:58 Fluticasone/Vilanterol 200/25 Blst.W.Dev INHALE 1 puff RDAILY NOELLE Administration Ketorolac Tromethamine 15 mg 12/07/20 11:00 12/09/20 05:05 Ketorolac Tromethamine 15 Mg/Ml Vial IVPUSH 15 mg Q6H NOELLE Administration Morphine Sulfate 2 mg 12/07/20 11:00 12/07/20 23:13 Morphine Sulfate 2 Mg/Ml Cartridge IVPUSH 2 mg Q2H PRN Administration Pain, Severe (Pain Scale 7-10) Naloxone HCl 0.2 mg 12/07/20 11:00 Naloxone Hcl 0.4 Mg/Ml Vial IVPUSH Q2M PRN Excessive sedation or RR < 8 Nitroglycerin 0.4 mg 12/07/20 15:04 Nitroglycerin 0.4 Mg Tab.Subl SUBLINGUAL Q5MX3 PRN Chest Pain Ondansetron HCl 4 mg 12/07/20 11:00 12/09/20 08:58 Ondansetron Hcl 4 Mg/2 Ml Vial IVPUSH 4 mg Q8H PRN Administration Nausea and Vomiting Oxycodone HCl 10 mg 12/07/20 11:00 12/09/20 05:05 Oxycodone Hcl Immed Release 5 Mg Tablet PO 10 mg Q6H NOELLE Administration Sodium Chloride 3 ml 12/07/20 16:00 12/09/20 05:06 0.9 % Sodium Chloride Flush 3 Ml Syringe IVFLUSH 3 ml QSHIFT NOELLE Administration Labs CBC & Chem 7: 12/09/20 07:49 Assessment and Plan (1) History of total right hip replacement: Problem details: Ms. Ortiz presented to the office today right hip pain, she was found to have osteoarthritis of the right hip. She had failed all conservative measures and continued to have difficulty with daily activities; therefore she consented to move forward with RT BASHIR. Status: Acute Assessment and Plan: 55-F with HTN, HLD s/p right hip athroplasty now with dizziness Dizziness with n/v, likely due to med and low BP, Right total hip arthroplasty. Management as per surgical team including DVT prophylaxis, pain med Hypertension. BP on low side 90/56, hold Norvasc. NS bolus Asthma. No exacerbation. Albuterol as nee
[2020-12-09] MEDS: 0.9 % Sodium Chloride 1,000 ML 999 ML IVCONT (10:07)
[2020-12-09] MEDS: Aspirin 325 MG TABLET PO (11:24)
[2020-12-09 11:53] VITALS: BP 101/58; PULSE 89; RESP 18; TEMP 36.8; O2SAT 97
== END 2020-12-09 12:10 | disposition home health service (06) | DRG 324 ==
LOC: HO.SSSA 06:49 → HO.S3 11:16
PROVIDERS: Nurse Practitioner; Nurse Practitioner Acute Care; Physician Assistant; Admitting Provider Orthopaedic Surgery; PCP Internal Medicine; Visit Provider Orthopaedic Surgery
PROC: 0SR90JA Replacement of Right Hip Joint with Synthetic Substitute, Uncemented, Open Approach (ICD-10-PCS; CPT 27130; principal; 2020-12-07 07:30)
DX: M16.11 Unilateral primary osteoarthritis, right hip (principal); I10 Essential (primary) hypertension; J45.909 Unspecified asthma, uncomplicated; Z20.822 Contact with and (suspected) exposure to COVID-19; Z79.51 Long term (current) use of inhaled steroids; Z79.82 Long term (current) use of aspirin; Z79.899 Other long term (current) drug therapy
CPT/HCPCS: 27130; 36415; 72170; 73502; 85014; 85018; 85025; 86850; 86900; 86901; 87635; 87640; 87641; 88304; 88311; 94640; 97110; 97116; 97162; 97166; 97530; 97535; C1776; J0131; J0690; J1885; J2250; J2270; J2405

== ENCOUNTER → 2020-12-23 12:50 | Outpatient (BNVA) | payer OTHER, SELFPAY | PROVIDERS: PCP Internal Medicine; Visit Provider Physician Assistant ==

== ENCOUNTER → 2021-01-13 12:32 | Outpatient (BNVA) | payer OTHER, SELFPAY | PROVIDERS: PCP Internal Medicine; Visit Provider Orthopaedic Surgery ==

== ENCOUNTER 2021-03-02 08:22 | Outpatient (REF) | payer OTHER, SELFPAY ==
--- NOTE | ~2021-03-02 | XR_ITS ---
EXAMINATION: XR HIP, RIGHT CLINICAL INFORMATION: Right hip pain COMPARISON: Right hip x-ray the second 2020 TECHNIQUE: Two views of the right hip. FINDINGS: Pelvic ring is intact. Sacroiliac joints are symmetric. Right total hip arthroplasty in expected orientation without dislocation or periprosthetic fracture. Heterotopic bone formation noted around the acetabulum and inferior to the greater trochanter. There are moderate degenerative changes of the partially visualized left hip. XR/XR hip RT w PEL1V IMPRESSION: No gross abnormality of the total right hip arthroplasty.
== END 2021-03-02 08:23 | disposition home or self-care (01) ==
LOC: HO.HOSX 08:22
PROVIDERS: Visit Provider Orthopaedic Surgery
DX: T84.84XA Pain due to internal orthopedic prosthetic devices, implants and grafts, initial encounter (principal); Z96.641 Presence of right artificial hip joint
CPT/HCPCS: 73502

== ENCOUNTER 2021-03-18 17:00 | Outpatient (RCR) | payer OTHER, SELFPAY ==
--- NOTE | 2020-12-31 16:41 | MHC.PT.EP ---
[facility] [place] [facility] [place] [facility] [place] Office [address] Judah Bernstein [address] [phone] F: [phone] F: [phone] F: [phone] F: [phone] Physical Therapy Plan of Care Date of Evaluation: 12/31/20 Date of Surgery: 12/07/20 Diagnosis: S/P RIGHT THR Assessment: 55 YO FEMALE REF TO PT S/P Rt THR, ANT APPROACH ON 12/07/20- SHE HAD BRIEF HOME VNA SERVICES- Pt HAS NOT BEEN CLEARED TO DRIVE, BUT HAS BEEN ALLOWED TO SLEEP IN [place]. 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 Pt CURRENTLY AMB W A CANE- SHE NOTES SHE HAS BEEN STARTING TO WEAN CANE- SHE DEMON RECIP STAIR MGMT. Pt HAS W PRE-EXISTING NUMB PATCH Rt POSTEROLAT THIGH, WEAKNESS IN CORE/ HIP EXT AND ABD, ESTEFANIA CALF AND HS TIGHTNESS, WFL PELVIC SYMM IN STAND, SHE NOTES HER INCISION IS HEALED AND ONLY A PORTION IS SENSITIVE. HER PAIN IS MOSTLY INCISIONAL AND SOME MUSCULAR ACHE W INCR ACTIVITY. Frequency and Duration: The patient will be seen 2 x WK x 4 WKs Short Term Goals: DECR Rt HIP GIRDLE PAIN TO 1-2/10 IN 2 WKS Pt DEMON WFL ESTEFANIA HS AND DF FLEXIB IN 2 WKS Rt HIP SCAR SENSITIVTY RESOLVED AND WFL MOBILITY IN 2 WKS Prison Goals: Pt INDEP HEP FOR STRENGTHENING Rt LE AND CORE REGION AND SELF-SX MGMT IN 4 WKS Pt DEMON WFL FUNCT SQUAT, FITNESS WALKING, DRIVING- RESUME REG ADLs (improved LEFT BY 10 POINTS, AT EVAL 40/80)W RESPECT TO PRECAUTIONS AND APPROVED BY DR RAINES IN 4 WKS Treatment Plan: Modalities to reduce pain, spasms and effusion. Manual therapy to restore motion and function. Therapeutic exercise to improve strength and flexibility. Neuromuscular re-education for posture and balance. Therapeutic activities to return to functional activities of daily living. Electronically signed by: Marely Floyd, PT Please sign and return to therapist. Thank you for your referral.
--- NOTE | 2021-03-19 09:40 | MHC.PT.DC ---
[facility] [place] [facility] [place] [facility] [place] Office [address] Judah Bernstein [address] [phone] F: [phone] F: [phone] F: [phone] F: [phone] Physical Therapy Discharge Report Diagnosis: S/P RIGHT THR Date of Surgery: 12/07/20 Date of Evaluation: 12/31/20 Date of Discharge: 03/18/21 Treatments to Date: 16 Cancellations to Date: 0 No Shows to Date: 0 Discharge Status: Achieved Goals Improved Function Independent with HEP Discharge Summary: Pt achieved all STG, LTG's. She has returned to work and regular ADLs w/o adverse response, her LEFT score has greatly improved (58/80 today and 40/80). Pt I with HEP - she has residual lateral shift w gait mechanics. Pt motivated to cont w strengthening and incr functional mob upon D/C from PT. Electronically signed by: Marely Floyd,PT Please sign and return to therapist. Thank you for your referral.
== END 2021-03-19 09:39 | disposition other institution (70) ==
LOC: HO.PTCHIC 17:00
PROVIDERS: PCP Internal Medicine; Visit Provider Physician Assistant
DX: Z47.1 Aftercare following joint replacement surgery (principal); Z96.641 Presence of right artificial hip joint
CPT/HCPCS: 97110; 97112; 97140; 97161

== ENCOUNTER 2021-05-03 15:41 | Outpatient (REF) | payer OTHER, SELFPAY ==
--- NOTE | ~2021-05-03 | MM_ITS ---
EXAMINATION: MM SCREENING DIGITAL BREAST TOMOSYNTHESIS, BILATERAL CLINICAL INFORMATION: Screening. Asymptomatic. The lifetime risk of breast cancer based on the Tyrer-Cuzick Model is 11.3%. COMPARISON: Mammography: April 23, 2020 and studies dating back to November 17, 2011 TECHNIQUE: Digital breast tomosynthesis is performed in both the craniocaudal and mediolateral oblique views along with computer-aided detection (CAD). Synthesized 2D images are generated from the tomosynthesis. FINDINGS: There are scattered areas of fibroglandular density (ACR BI-RADS breast composition Category b). There are no significant masses, abnormal calcifications, or other abnormalities. MM/MM tomosynthesis screening BI IMPRESSION: There are no significant changes from prior study. ASSESSMENT: BI-RADS 1: Negative RECOMMENDATION: Routine annual mammography screening. This patient's information was entered into a reminder system with a target due date for their next mammogram.
== END 2021-05-03 15:42 | disposition home or self-care (01) ==
LOC: HO.MAMMO 15:41
PROVIDERS: Visit Provider Internal Medicine
DX: Z12.31 Encounter for screening mammogram for malignant neoplasm of breast (principal)
CPT/HCPCS: 77063; 77067

== ENCOUNTER 2021-12-14 07:44 | Outpatient (REF) | payer OTHER, SELFPAY ==
--- NOTE | ~2021-12-14 | XR_ITS ---
EXAMINATION: XR HIP, RIGHT CLINICAL INFORMATION: Pain. Arthroplasty. COMPARISON: Radiographs pelvis and right hip 03/02/2021, 12/08/2020 TECHNIQUE: AP view pelvis is performed along with AP and frog-lateral projections right hip. FINDINGS: There is right hip arthroplasty. The hardware is intact. There is no fracture, dislocation, osteolysis, or destructive process. No periostitis. Again, there is spurring from the superior aspect right hip greater trochanter. The heterotopic bone at the caudal aspect right greater trochanter is now organized with smooth benign uniform corticated margins. Soft tissue planes are unremarkable. Left hip has osteoarthritic changes with superior hip joint narrowing and mild subchondral sclerosis and bulky osteophytes from the posterior superior left acetabulum. There is spurring from the left hip greater trochanter. Degenerative disc changes are again present lumbar spine, greater at L3-L4 with disc narrowing and bridging right lateral osteophyte. XR/XR hip RT w PEL1V IMPRESSION: 1. Status post right hip arthroplasty. Hardware intact. 2. No destructive process or osteolysis. 3. Degenerative disc changes lumbar spine. Left hip osteoarthritis.
== END 2021-12-14 07:45 | disposition home or self-care (01) ==
LOC: HO.HOSX 07:44
PROVIDERS: Visit Provider Physician Assistant
DX: Z96.641 Presence of right artificial hip joint (principal)
CPT/HCPCS: 73502

== ENCOUNTER 2022-05-06 07:16 | Outpatient (REF) | payer OTHER, SELFPAY ==
--- NOTE | ~2022-05-06 | MM_ITS ---
EXAMINATION: MM SCREENING DIGITAL BREAST TOMOSYNTHESIS, BILATERAL CLINICAL INFORMATION: Screening. Asymptomatic. The lifetime risk of breast cancer based on the Tyrer-Cuzick Model is 11%. COMPARISON: Mammography: 05/03/2021, 04/23/2020, 04/18/2019 TECHNIQUE: Digital breast tomosynthesis is performed in both the craniocaudal and mediolateral oblique views along with computer-aided detection (CAD). Synthesized 2D images are generated from the tomosynthesis. FINDINGS: There are scattered areas of fibroglandular density (ACR BI-RADS breast composition Category b). There are no significant masses, abnormal calcifications, or other abnormalities. Low right axillary tail node on MLO view is stable. There is an intramammary node again suggested mid 3:00 left breast. No architectural abnormality. The contours are smooth. MM/MM tomosynthesis screening BI IMPRESSION: No mammographic evidence of malignancy. ASSESSMENT: BI-RADS 2: Benign RECOMMENDATION: Routine annual mammography screening. This patient's information was entered into a reminder system with a target due date for their next mammogram.
== END 2022-05-06 07:17 | disposition home or self-care (01) ==
LOC: HO.MAMMO 07:16
PROVIDERS: PCP Internal Medicine; Visit Provider Internal Medicine
DX: Z12.31 Encounter for screening mammogram for malignant neoplasm of breast (principal)
CPT/HCPCS: 77063; 77067

== ENCOUNTER 2022-09-06 15:25 | Outpatient (REF) | payer OTHER, SELFPAY ==
--- NOTE | ~2022-09-06 | MM_ITS ---
EXAMINATION: BONE DENSITOMETRY CLINICAL INDICATION: Menopause. COMPARISON: None (current study represents initial baseline exam). TECHNIQUE: Using a Slipstream DXA System (software version: 13.1) manufactured by [employer], dual-energy x-ray absorptiometry was performed of the lumbar spine and left hip. The images are of good technical quality. Summary results are attached. FINDINGS: AP SPINE L1-L4: BMD 1.164 g/cm2, Z-score 0.8, T-score -0.1, normal. LEFT FEMUR, NECK: BMD 0.950 g/cm2, Z-score 0.4, T-score -0.6, normal. LEFT FEMUR, TOTAL: BMD 0.994 g/cm2, Z-score 0.6, T-score -0.1, normal. IDENTIFIED RISK FACTORS: Menopause, hysterectomy, bilateral oophorectomy. HISTORY OF FRACTURE: None listed. MEDICATIONS: None listed. MM/XR DEXA appendicular skeleton IMPRESSION: 1. DIAGNOSIS: Normal bone density based on the lowest T-score value of -0.6 in the femoral neck applying World Health Organization criteria. 2. 10-YEAR FRACTURE RISK PREDICTION, FRAX: According to the guidelines, FRAX calculation should only be performed on patients in the osteopenia bone density category. Therefore, FRAX was not performed on this patient. 3. Treatment Recommendations: NOF guidelines recommend consideration for treatment in postmenopausal women and men age 50 and older presenting with the following: -A hip or vertebral (clinical or morphometric) fracture. -T-score less than or equal to -2.5 at the femoral neck or spine after appropriate evaluation to exclude secondary causes. -Low bone mass at the hip or spine and a 10-year fracture probability by FRAX of greater than or equal to 3% for hip fracture or greater than or equal to 20% for major osteoporotic fracture based on the [place] adapted WHO algorithm. 4. Other Recommendations: All treatment decisions require clinical judgment and consideration of individual patient factors, including patient preferences, comorbidities, previous drug use, risk factors not captured in the FRAX model (e.g. frailty, falls, vitamin D deficiency, increased bone turnover, interval significant decline in bone density) and possible under or overestimation of fracture risk by FRAX. FUTURE SCAN RECOMMENDATION: People with diagnosed cases of osteoporosis or at high risk for fracture should have regular bone mineral density tests. For patients eligible for Medicare, routine testing is allowed once every 2 years. The testing frequency can be increased to one year for patients who have rapidly progressing disease, those who are receiving or discontinuing medical therapy to restore bone mass, or have additional risk factors.
== END 2022-09-06 15:26 | disposition home or self-care (01) ==
LOC: HO.MAMMO 15:25
PROVIDERS: PCP Internal Medicine; Visit Provider Internal Medicine
DX: Z13.820 Encounter for screening for osteoporosis (principal); Z78.0 Asymptomatic menopausal state
CPT/HCPCS: 77081

== ENCOUNTER 2023-05-23 15:36 | Outpatient (REF) | payer OTHER, SELFPAY ==
--- NOTE | ~2023-05-23 | MM_ITS ---
EXAMINATION: MM SCREENING DIGITAL BREAST TOMOSYNTHESIS, BILATERAL CLINICAL INFORMATION: Screening. Asymptomatic. The lifetime risk of breast cancer based on the Tyrer-Cuzick Model is 10.6%. COMPARISON: Mammography: This study is compared with prior exams dating back to 2019. TECHNIQUE: Digital breast tomosynthesis is performed in both the craniocaudal and mediolateral oblique views along with computer-aided detection (CAD). Synthesized 2D images are generated from the tomosynthesis. FINDINGS: There are scattered areas of fibroglandular density (ACR BI-RADS breast composition Category b). There are no significant masses, abnormal calcifications, or other abnormalities. MM/MM tomosynthesis screening BI IMPRESSION: No mammographic evidence of malignancy. ASSESSMENT: BI-RADS BI-RADS 1 - Negative RECOMMENDATION: Routine annual mammography screening. 1 year F/U This examination should not preclude the clinical evaluation of a suspicious palpable abnormality. This patient's information was entered into a reminder system with a target due date for their next mammogram.
== END 2023-05-23 15:37 | disposition home or self-care (01) ==
LOC: HO.MAMMO 15:36
PROVIDERS: Visit Provider Internal Medicine
DX: Z12.31 Encounter for screening mammogram for malignant neoplasm of breast (principal)
CPT/HCPCS: 77063; 77067

== ENCOUNTER → 2023-05-23 15:45 | Outpatient (BNV) | payer OTHER, SELFPAY | PROVIDERS: Visit Provider Radiology Diagnostic Radiology | DX: Z12.31 Encounter for screening mammogram for malignant neoplasm of breast (principal) | CPT/HCPCS: 77063; 77067 ==

== ENCOUNTER 2023-09-09 08:57 | Outpatient (REF) | payer OTHER, SELFPAY ==
[2023-09-09 10:08] LABS: Hematocrit 43.4 % (37.0-47.0); Hemoglobin 14.7 g/dl (12.0-16.0); Mean Corpuscular HGB Conc 33.9 g/dl (31.0-35.0); Mean Corpuscular Hemoglobin 29.5 pg (27.0-33.0); Mean Corpuscular Volume 87.1 fL (80.0-98.0); Mean Platelet Volume 10.4 fL (9.4-12.3); Platelet Count 240 X10*3/uL (160-400); Red Blood Count 4.98 X10*6/uL (4.20-5.50); Red Cell Distribution Width 11.7 % (11.0-16.0); White Blood Count 5.8 X10*3/uL (4.8-10.8)
[2023-09-09 10:10] LABS: Appearance Urine Clear; Color Urine Yellow; Glucose Urine UA Negative (Negative); Leukocyte Esterase Urine Small (1+) (Negative); Nitrite Urine Negative (Negative); UMIC TRIGGER UA YES; Urine Blood Negative (Negative); Urine Ketones Negative (Negative); Urine Protein Negative (Neg-Trace)
[2023-09-09 10:33] LABS: Bacteria Urine None Seen (None Seen); Calcium Oxalate Crystals Urine Present; Hyaline Casts Urine 0-2 /LPF (0-2); RBC Urine 0-2 /HPF (0-2); WBC Urine 0-5 /HPF (0-5)
[2023-09-09 10:37] LABS: Alanine Aminotransferase 25 U/L (0-31); Albumin Level 4.4 g/dL (3.5-5.0); Alkaline Phosphatase 48 U/L (39-117); Anion Gap 10 (12-20); Aspartate Amino Transferase 23 U/L (5-31); Bilirubin Direct 0.2 mg/dL (0.0-0.5); Bilirubin Total 0.6 mg/dL (0.0-1.0); Blood Urea Nitrogen 13 mg/dL (9-16); Calcium 9.4 mg/dL (8.4-10.2); Carbon Dioxide 30 mmol/L (22-29); Chloride 107 mmol/L (96-108); Cholesterol 167 mg/dL (<200); Estimated Glomerular Filt Rate > 60; Glucose Random 85 mg/dL (60-115); HDL Cholesterol 53 mg/dL (>40); LDL Cholesterol Calculated 97 mg/dL (<100); Potassium 3.9 mmol/L (3.3-5.1); Sodium 143 mmol/L (135-145); Total Protein 6.8 g/dL (6.5-8.0); Triglycerides 85 mg/dL (<150)
[2023-09-09 10:43] LABS: Thyroid Stimulating Hormone 0.89 uIU/mL (0.32-4.0)
== END 2023-09-09 08:58 | disposition home or self-care (01) ==
LOC: HO.LAB 08:57
PROVIDERS: PCP Internal Medicine; Visit Provider Internal Medicine
DX: Z00.00 Encounter for general adult medical examination without abnormal findings (principal)
CPT/HCPCS: 36415; 80048; 80061; 80076; 81001; 81003; 84443; 85027

== ENCOUNTER 2023-09-14 15:08 | Outpatient (AMB) | payer OTHER, SELFPAY ==
--- NOTE | 2023-09-14 15:10 | A.OFFPC_ITS ---
Vital Signs 09/14/23 15:14 Height 5 ft 4 in Weight 143 lb 8 oz BMI 24.6 BP 100/66 Blood Pressure Location Lt brachial Position Sitting Pulse 81 Pulse Source Pulse Oximeter Pulse Oximetry (%) 98 Oxygen Delivery Method Room Air Intake Visit Reasons: phy Intake Note: Patient is here today for a physical. 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: Not Required per policy Accompanied by: Self / Same As Patient Allergies blue dye [BLUE DYE] Allergy (Severe, Verified 09/15/23 12:24) ANAPHYLAXIS latex [LATEX] Allergy (Severe, Verified 09/15/23 12:24) ANAPHYLAXIS red dye [RED DYE] Allergy (Severe, Verified 09/15/23 12:24) ANAPHYLAXIS tree nut [TREE NUT] Allergy (Severe, Verified 09/15/23 12:24) ANAPHYLAXIS progesterone [PROGESTERONE] Allergy (Unknown, Verified 09/15/23 12:24) mental confusion FRUIT Allergy (Severe, Uncoded 09/15/23 12:24) ANAPHYLAXIS GREEN DYE Allergy (Severe, Uncoded 09/15/23 12:24) ANAPHYLAXIS VEGETABLES,FRESH Allergy (Severe, Uncoded 09/15/23 12:24) ANAPHYLAXIS Medication List - Last Reconciled 09/15/23 by Randal Tanner MD albuterol sulfate 90 mcg/actuation 1 inh inhalation Q4-6H PRN amlodipine 5 mg PO DAILY atorvastatin 20 mg PO BEDTIME epinephrine 0.3 mg (0.3 mL) IM NEEDED PRN estradiol 0.01%(0.1mg/gram) vaginal fluticasone propion-salmeterol 500-50 mcg/dose 1 inh inhalation BID ketoconazole 2% 1 appl topical DAILY nitroglycerin 0.4 mg sublingual Q5M trazodone 50 mg PO BEDTIME PRN Tobacco use date assessed: 09/14/23 Dental Screening Dental Screen Date: 09/14/23 Did you have a dental visit in the last 12 months?: Yes Did you have a dental problem in the last 6 months where you did not have access to dental care?: No Was dental information given to patient?: Patient has dentist HPI phy HPI Details 58-year-old female presents to the offic e requesting an annual physical. Patient has had a right hip replacement. She is now experiencing discomfort and pain in the left hip. She was told she had arthritis in the left hip and would need a replacement in due course. She would like to get an orthopedic appointment. Patient is unable to sleep well at night. She goes to bed at 10 or 23:00 and gets up within a few hours. She is unable to go back to bed. She is tired and irritable due to lack of sleep. Reports no anxiety or depression. [facility] Medical History Severe allergy to latex Asthma History of blood transfusion LVH (left ventricular hypertrophy) History of arteriography Osteoarthritis of right hip Unilateral primary osteoarthritis, right hip Surgical History History of hip replacement Hx of exploratory laparotomy Hx of wisdom tooth extraction Hx of local excision of skin lesion Hx of colonoscopy H/O vaginal hysterectomy History of tonsillectomy History of section Family History Father History of pancreatic cancer History of kidney cancer Mother History of cancer of ethmoid sinus Social History Household Members: Family Housing: House Are you a primary tree care foreman to a significant other at home: No Do you presently have visiting nurse or other home services: No Alcohol intake: current Alcohol intake frequency: holidays/special occasions only Patient Tobacco Use Status: Never used Tobacco e-Cigarette/Vaping Use: Never Used Second Hand Smoke Exposure: No service: No Current occupational status: employed 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 1. Little interest or pleasure in doing things: not at all 2. Feeling down, depressed, or hopeless: not at all 3. Trouble falling or staying asleep, or sleeping too much: not at all 4. Feeling tired or having little energy: not at all 5. Poor appetite or overeating: not at all 6. Feeling bad about yourself - or that you are a failure or have let yourself or your family down: not at all 7. Trouble concentrating on things, such as reading the newspaper or watching television: not at all 8. Moving or speaking so slowly that other people could have noticed. Or the opposite - being so fidgety or restless that you have been moving around a lot more than usual: not at all 9. Thoughts that you would be better off or of hurting yourself in some way: not at all Total score: 0 Depression Screening Interpretation: Negative Depression Screening Done: Yes Source: Developed by Drs. Santi Marrero, Enedelia Altman, Amandeep Dietrich and colleagues, with an educational raimundo from [employer]). Thrive Questionnaire Date Thrive assessed: 09/14/23 I am a: Patient What is your living situation today?: I have a steady place to live Within the past 12 months, did the food you bought not last and you didn't have the money to get more?: Never true Within the past 12 months, did you worry whether your food would run out before you got money to buy more?: Never true Do you have trouble paying for medicines?: No Do you have trouble getting transportation to medical appointments?: No Do you have trouble paying your heating and electricity bill?: No Do you have trouble taking care of your child, family member or friend?: No Do you have trouble with day-to-day activities such as bathing, preparing meals, shopping, managing finances, etc.?: No Are you currently unemployed and looking for a job?: No Are you interested in more education?: No Currently or been in a relationship where the following occur: no concerns reported AUDIT C Alcohol Use Questionnaire (AUDIT-C) 1. How often do you have a drink containing alcohol?: Monthly or less Total Score: 1 JACKI-7 AMB Questionnaire JACKI-7 Date JACKI - 7 assessed: 09/14/23 Feeling nervous, anxious, or on edge: 0 = Not at all Not being able to stop or control worryin = Not at all Worrying too much about different things: 0 = Not at all Trouble relaxin = Not at all Being so restless that it is hard to sit still: 0 = Not at all Becoming easily annoyed or irritable: 0 = Not at all Feeling afraid as if something awful might happen: 0 = Not at all Total JACKI-7 score (0-4 normal; 5-9 mild; 10-14 moderate; 15-21 severe): 0 Source: Developed by Drs. Santi Marrero, Enedelia Altman, Amandeep Dietrich and colleagues, with an educational raimundo from [employer] Physical exam (Primary Care) Vital Signs: Last Vital Signs Pulse 81 09/14/23 15:14 BP 100/66 09/14/23 15:14 Pulse Ox 98 09/14/23 15:14 Oxygen Delivery Method Room Air 09/14/23 15:14 Care Plan Goal for BP management: Blood pressure is in range. BMI result Body Mass Index 24.6 Tobacco/Smoking Status: Tobacco use Status Tobacco use date assessed 09/14/23 09/14/23 15:19 Patient Tobacco Use Status Never used Tobacco 09/14/23 15:11 e-Cigarette/Vaping Use Never Used 09/14/23 15:11 PHQ-9: PHQ-9 Score PHQ-9: Total score 0 09/14/23 16:09 Depression Screening Interpretation: Negative Thrive Assessment: Date of Thrive Assessment Date Thrive assessed 09/14/23 09/14/23 15:19 Currently or been in a relationship where the following occur: no concerns reported Advance Care Planning discussion: Exists, not on file Date of discussion: 09/14/23 Who was present: Patient Forms completed: Health Care Proxy and MOLST Time spent: 1-15 minutes, not on file Actual minutes spent: 5 Const General: cooperative and healthy appearing Nutritional Appearance: well nourished Orientation/consciousness: patient oriented x3 Limitations: no limitations HENMT Head: Yes normal to inspection Eyes General: appearance normal, both eyes and all related structures Neck Neck: Yes normal visual inspection Chest Chest palpation & inspection: normal palpation of entire chest wall Resp Effort & Inspection: normal respiratory effort Neuro General: patient oriented x3 Assessment and Plan Assessment & Plan (1) Osteoarthritis of hip, unspecified: Code(s): M16.9 - Osteoarthritis of hip, unspecified (2) Annual physical exam: Code(s): Z00.00 - Encounter for general adult medical examination without abnormal findings Plan: Patient is up-to-date on her mammogram. A colonoscopy was done 3 years ago. An appointment for orthopedics has been created. This is to evaluate the left hip. Trazodone for sleep has been ordered. Orders: Referrals Orthopedics Referral M16.9 - Osteoarthritis of hip, unspecified Medications: New ketoconazole 2% 1 appl topical DAILY 30 grams 0RF trazodone 50 mg PO BEDTIME PRN 30 tabs 0RF sleep Coding Level of Care Code New Pt Prev Care 40-64y(21671) Diagnoses Osteoarthritis of hip, unspecified M16.9 Annual physical exam Z00.00 Additional Codes Vital Signs *Quality* - Advance Care Planning discussion: Exists, not on file ([id number]) Vital Signs *Quality* - Time spent: 1-15 minutes, not on file ([id number])
[2023-09-14 15:14] VITALS: BP 100/66; PULSE 81; O2SAT 98; BMI 24.6
== END 2023-09-14 15:39 | disposition home or self-care (01) ==
PROVIDERS: PCP Internal Medicine; Visit Provider Internal Medicine
DX: M16.9 Osteoarthritis of hip, unspecified (principal); Z00.00 Encounter for general adult medical examination without abnormal findings
CPT/HCPCS: 1123F; 1124F; 99386

== ENCOUNTER 2023-10-12 12:39 | Outpatient (REF) | payer OTHER, SELFPAY ==
--- NOTE | ~2023-10-12 | XR_ITS ---
EXAMINATION: XR PELVIS CLINICAL INFORMATION: Pain and unspecified hip. COMPARISON: AP pelvis and right hip radiographs of 12/14/2021 TECHNIQUE: 2 AP views of the pelvis. FINDINGS: Degenerative changes in the imaged lower lumbar spine. Rounded pelvic calcifications are likely vascular. The bones are diffusely demineralized. Redemonstration of right total hip arthroplasty, similar in position. Heterotopic ossification along the lateral aspect and inferior to the right greater trochanter. [id number] degenerative changes left hip with joint space narrowing, subchondral sclerosis and hypertrophic change again seen. XR/XR pelvis 1-2V IMPRESSION: 1. Right total hip arthroplasty is similar in position. 2. [id number] degenerative changes left hip. Correlation with clinical exam recommended to determine further management. If there is concern for fracture or other underlying pathology, MRI could be obtained for further evaluation.
== END 2023-10-12 12:40 | disposition home or self-care (01) ==
LOC: HO.HOSX 12:39
PROVIDERS: Visit Provider Orthopaedic Surgery
DX: M16.12 Unilateral primary osteoarthritis, left hip (principal)
CPT/HCPCS: 72170

== ENCOUNTER 2023-10-12 14:30 | Outpatient (AMB) | payer OTHER, SELFPAY ==
--- NOTE | 2023-10-12 14:51 | A.OFFVIS_ITS ---
Intake Vital Signs 10/12/23 14:57 Height 5 ft 4 in Weight 143 lb BMI 24.5 Intake Visit Reasons: New Prob- Left hip OA Intake Note: Kimberlee is a 58 year old female who presents today for a new problem visit with complaints of left hip pain. Hx of RT BASHIR 12/07/20 KI. Patient reports that she has had left hip pain worsening over the last year. Allergies blue dye [BLUE DYE] Allergy (Severe, Verified 10/12/23 14:54) ANAPHYLAXIS latex [LATEX] Allergy (Severe, Verified 10/12/23 14:54) ANAPHYLAXIS red dye [RED DYE] Allergy (Severe, Verified 10/12/23 14:54) ANAPHYLAXIS tree nut [TREE NUT] Allergy (Severe, Verified 10/12/23 14:54) ANAPHYLAXIS progesterone [PROGESTERONE] Allergy (Unknown, Verified 10/12/23 14:54) mental confusion FRUIT Allergy (Severe, Uncoded 10/12/23 14:54) ANAPHYLAXIS GREEN DYE Allergy (Severe, Uncoded 10/12/23 14:54) ANAPHYLAXIS VEGETABLES,FRESH Allergy (Severe, Uncoded 10/12/23 14:54) ANAPHYLAXIS HPI New Prob- Left hip OA HPI Details Kimberlee is a 58 year old woman who presents with complaints of left hip pain. She complains of pain with daily activity, along with limited motion of her hip. She has difficulty laying flat at times and is unable to cross her legs. She says most of her pain is sciatic in nature and felt on the posterior aspect of her hip. and says this has been worsening for ~1 year now. She occasionally has some pain in her groin. She says most of her pain is not the same as in her right side prior to her right BASHIR. She denies any prior treatment options. She denies any burning or numbness, but says she has some occasional tingling in her leg. She says she is able to walk for short or normal distances without pain, but prolonged walking can be painful for her by the end of the day. She has a hx of a right BASHIR, DOS: 12/07/[address] Woodall. She says she did well following surgery and has no complaints. [facility] Medical History Severe allergy to latex Asthma History of blood transfusion LVH (left ventricular hypertrophy) History of arteriography Osteoarthritis of right hip Unilateral primary osteoarthritis, right hip Surgical History History of hip replacement Hx of exploratory laparotomy Hx of wisdom tooth extraction Hx of local excision of skin lesion Hx of colonoscopy H/O vaginal hysterectomy History of tonsillectomy History of section Family History Father History of pancreatic cancer History of kidney cancer Mother History of cancer of ethmoid sinus Social History Household Members: Family Housing: House Are you a primary hospice spiritual care coordinator to a significant other at home: No Do you presently have visiting nurse or other home services: No Alcohol intake: current Alcohol intake frequency: holidays/special occasions only Comment: pt sleeping Patient Tobacco Use Status: Never used Tobacco e-Cigarette/Vaping Use: Never Used Second Hand Smoke Exposure: No service: No Current occupational status: employed 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 Cognitive needs: No Hearing needs: No Vision needs: Yes (glasses) Review of Systems Const All systems reviewed & are unremarkable except as noted in HPI and below Physical Exam Vital Signs: BMI result Body Mass Index 24.5 Const General: no acute distress, alert and awake Orientation/consciousness: patient oriented x3 HEENT Head: Yes normocephalic and Yes atraumatic Eyes EOM: EOMs intact bilaterally Resp Effort & Inspection: normal respiratory effort and able to speak in complete sentences Cardio Jugular venous distension: no JVD Skin General skin exam: turgor normal Rashes: no rashes Neuro General: patient oriented x3 Extrem Other: mildy + impingement test with FADIR and + Stinchfield nl gait motion of left hip maintained Psych Appearance: grossly normal Affect: normal affect Attitude: cooperative Results Reviewed Results Reviewed: I personally reviewed relevant radiographs moderate left hip OA Right total hip arthroplasty in expected post operative position with no hardware complications or evidence of loosening Assessment & Plan Assessment & Plan (1) Primary osteoarthritis of left hip: Code(s): M16.12 - Unilateral primary osteoarthritis, left hip Plan: Left hip OA with mild symptoms. I discussed her radiographs and symptoms. She is only moderately affected at worst and as such I think arthroplasty is premature. She agrees. COntineu activity as tolerated. If her pain worsens we can re-evaluate. She may return at any time. Plan Scribed for Demond Cabrera MD by Camilo Shannon, quality engineer medical device, on 10/12/23 at 3:10 PM, EST. Orders: Orders XR pelvis 1-2V 10/12/23 M25.559 - Pain in unspecified hip Coding Level of Care Code Est Pt Level 4 (27866) Diagnoses Primary osteoarthritis of left hip M16.12
[2023-10-12 14:57] VITALS: BMI 24.5
== END 2023-10-12 15:50 | disposition home or self-care (01) ==
PROVIDERS: PCP Internal Medicine; Visit Provider Orthopaedic Surgery
DX: M16.12 Unilateral primary osteoarthritis, left hip (principal)
CPT/HCPCS: 99214

== ENCOUNTER 2024-06-07 07:37 | Outpatient (REF) | payer OTHER, SELFPAY ==
--- NOTE | ~2024-06-07 | MM_ITS ---
EXAMINATION: MM SCREENING DIGITAL BREAST TOMOSYNTHESIS, BILATERAL CLINICAL INFORMATION: Screening. Asymptomatic. COMPARISON: Mammography: This study is compared with prior exams dating back to 2019. TECHNIQUE: Digital breast tomosynthesis is performed in both the craniocaudal and mediolateral oblique views along with computer-aided detection (CAD). Synthesized 2D images are generated from the tomosynthesis. FINDINGS: There are scattered areas of fibroglandular density (ACR BI-RADS breast composition Category b). There are no significant masses, abnormal calcifications, or other abnormalities. MM/MM tomosynthesis screening BI IMPRESSION: No mammographic evidence of malignancy. ASSESSMENT: BI-RADS BI-RADS 1 - Negative RECOMMENDATION: Routine annual mammography screening. 1 year F/U This examination should not preclude the clinical evaluation of a suspicious palpable abnormality. This patient's information was entered into a reminder system with a target due date for their next mammogram. Electronically signed by: Mackenzie Romero MD 07/08/2024 11:14 PM EDT
== END 2024-06-07 07:38 | disposition home or self-care (01) ==
LOC: HO.MAMMO 07:37
PROVIDERS: PCP Internal Medicine; Visit Provider Internal Medicine
DX: Z12.31 Encounter for screening mammogram for malignant neoplasm of breast (principal)
CPT/HCPCS: 77063; 77067

== ENCOUNTER → 2024-06-07 08:00 | Outpatient (BNV) | payer OTHER, SELFPAY | PROVIDERS: PCP Internal Medicine; Visit Provider Radiology Diagnostic Radiology | DX: Z12.31 Encounter for screening mammogram for malignant neoplasm of breast (principal) | CPT/HCPCS: 77063; 77067 ==

== ENCOUNTER 2024-09-19 15:16 | Outpatient (AMB) | payer OTHER, SELFPAY ==
--- NOTE | 2024-09-19 15:18 | MHC.PC.OV ---
Vital Signs 09/19/24 15:19 Height 5 ft 4 in Weight 155 lb 2 oz BMI 26.6 BP 110/68 Blood Pressure Location Lt brachial Position Sitting Pulse 76 Pulse Source Pulse Oximeter Pulse Oximetry (%) 97 Oxygen Delivery Method Room Air Intake Visit Reasons: pe Intake Note: Patient is here today for a physical. Pt decline flu shot today. J2Ee Architect Required: No Lamination Technician: Not Required per policy Accompanied by: Self / Same As Patient Allergies blue dye [BLUE DYE] Allergy (Severe, Verified 09/20/24 13:53) ANAPHYLAXIS latex [LATEX] Allergy (Severe, Verified 09/20/24 13:53) ANAPHYLAXIS red dye [RED DYE] Allergy (Severe, Verified 09/20/24 13:53) ANAPHYLAXIS tree nut [TREE NUT] Allergy (Severe, Verified 09/20/24 13:53) ANAPHYLAXIS progesterone [PROGESTERONE] Allergy (Unknown, Verified 09/20/24 13:53) mental confusion FRUIT Allergy (Severe, Uncoded 09/20/24 13:53) ANAPHYLAXIS GREEN DYE Allergy (Severe, Uncoded 09/20/24 13:53) ANAPHYLAXIS VEGETABLES,FRESH Allergy (Severe, Uncoded 09/20/24 13:53) ANAPHYLAXIS Medication List - Last Reconciled 09/20/24 by Randal Tanner MD albuterol sulfate 90 mcg/actuation 1 inh inhalation Q4-6H PRN amlodipine 5 mg PO DAILY atorvastatin 20 mg PO BEDTIME epinephrine 0.3 mL IM ONCE estradiol 0.01%(0.1mg/gram) vaginal fluticasone propion-salmeterol 500-50 mcg/dose 1 inh inhalation BID ketoconazole 2% 1 appl topical DAILY nitroglycerin 0.4 mg sublingual Q5M trazodone 50 mg PO BEDTIME PRN Tobacco use date assessed: 09/19/24 Dental Screening Dental Screen Date: 09/19/24 Did you have a dental visit in the last 12 months?: Yes Did you have a dental problem in the last 6 months where you did not have access to dental care?: No Was dental information given to patient?: Patient has dentist HPI pe HPI Details 59-year-old female presents to the office requesting an annual physical. In addition, she wishes to discuss the pain associated with her TMJ dysfunction. Patient has been wearing a mouth guard as treatment for the left TMJ dysfunction. However in the past month she is beginning to experience sharp pain in the area, especially with chewing. REPLACED BY [facility] Medical History (Updated 09/20/24 @ 14:13 by Randal Tanner MD) Left-sided temporomandibular joint pain-dysfunction syndrome Severe allergy to latex Asthma History of blood transfusion LVH (left ventricular hypertrophy) History of arteriography Osteoarthritis of right hip Unilateral primary osteoarthritis, right hip Surgical History (Updated 09/20/24 @ 14:15 by Randal Tanner MD) History of hip replacement Hx of exploratory laparotomy Hx of wisdom tooth extraction Hx of local excision of skin lesion Hx of colonoscopy (~08/21/18) H/O vaginal hysterectomy History of tonsillectomy History of section Family History Father History of pancreatic cancer History of kidney cancer Mother History of cancer of ethmoid sinus Social History Household Members: Family Housing: House Are you a primary sub acute care nurse to a significant other at home: No Do you presently have visiting nurse or other home services: No Alcohol intake: current Alcohol intake frequency: holidays/special occasions only Comment: pt sleeping Patient Tobacco Use Status: Never used Tobacco e-Cigarette/Vaping Use: Never Used Second Hand Smoke Exposure: No service: No Current occupational status: employed 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 1. Little interest or pleasure in doing things: not at all 2. Feeling down, depressed, or hopeless: not at all 3. Trouble falling or staying asleep, or sleeping too much: several days 4. Feeling tired or having little energy: not at all 5. Poor appetite or overeating: not at all 6. Feeling bad about yourself - or that you are a failure or have let yourself or your family down: not at all 7. Trouble concentrating on things, such as reading the newspaper or watching television: not at all 8. Moving or speaking so slowly that other people could have noticed. Or the opposite - being so fidgety or restless that you have been moving around a lot more than usual: not at all 9. Thoughts that you would be better off or of hurting yourself in some way: not at all Total score: 1 Depression Screening Interpretation: Positive Depression Screening Done: Yes Source: Developed by Drs. Santi Marrero, Enedelia Altman, Amandeep Dietrich and colleagues, with an educational raimundo from [employer]. Thrive Questionnaire Date Thrive assessed: 09/19/24 I am a: Patient What is your living situation today?: I have a steady place to live Within the past 12 months, did the food you bought not last and you didn't have the money to get more?: Never true Within the past 12 months, did you worry whether your food would run out before you got money to buy more?: Never true Do you have trouble paying for medicines?: No Do you have trouble getting transportation to medical appointments?: No Do you have trouble paying your heating and electricity bill?: No Do you have trouble taking care of your child, family member or friend?: No Do you have trouble with day-to-day activities such as bathing, preparing meals, shopping, managing finances, etc.?: No Are you currently unemployed and looking for a job?: No Are you interested in more education?: No Please select the resources that you would like help with: None Currently or been in a relationship where the following occur: No concerns reported THRIVE Score: 0 AUDIT C Alcohol Use Questionnaire (AUDIT-C) 1. How often do you have a drink containing alcohol?: Monthly or less 2. How many drinks containing alcohol do you have on a typical day when you are drinking?: 1 or 2 3. How often do you have six or more drinks on one occasion?: Never Total Score: 1 JACKI-7 AMB Questionnaire JACKI-7 Date JACKI - 7 assessed: 09/19/24 Feeling nervous, anxious, or on edge: 0 = Not at all Not being able to stop or control worryin = Not at all Worrying too much about different things: 0 = Not at all Trouble relaxin = Not at all Being so restless that it is hard to sit still: 0 = Not at all Becoming easily annoyed or irritable: 0 = Not at all Feeling afraid as if something awful might happen: 0 = Not at all Total JACKI-7 score (0-4 normal; 5-9 mild; 10-14 moderate; 15-21 severe): 0 Source: Developed by Drs. Santi Marrero, Enedelia Altman, Amandeep Dietrich and colleagues, with an educational raimundo from [employer]. Physical exam (Primary Care) Vital Signs: Last Vital Signs Pulse 76 09/19/24 15:19 BP 110/68 09/19/24 15:19 Pulse Ox 97 09/19/24 15:19 Oxygen Delivery Method Room Air 09/19/24 15:19 BMI result Body Mass Index 26.6 Tobacco/Smoking Status: Tobacco use Status Tobacco use date assessed 09/19/24 09/19/24 15:25 Patient Tobacco Use Status Never used Tobacco 09/19/24 15:25 e-Cigarette/Vaping Use Never Used 09/19/24 15:25 PHQ-9: PHQ-9 Score PHQ-9: Total score 1 09/19/24 15:25 Depression Screening Interpretation: Positive Thrive Assessment: Date of Thrive Assessment Date Thrive assessed 09/19/24 09/19/24 15:25 Currently or been in a relationship where the following occur: No concerns reported Const General: cooperative and healthy appearing Nutritional Appearance: well nourished Orientation/consciousness: patient oriented x3 Limitations: no limitations HENMT Other: Left TMJ: Minimal discomfort over the left TMJ, patient experiences discomfort on opening her jaw or moving it sideways. Head: Yes normal to inspection Eyes General: appearance normal, both eyes and all related structures Neck Neck: Yes normal visual inspection Chest Chest palpation & inspection: normal palpation of entire chest wall Resp Effort & Inspection: normal respiratory effort Neuro General: patient oriented x3 Coding Level of Care Code Est Pt Level 3 (46461) Est Pt Prev Care 40-64y(39723) Diagnoses Annual physical exam Z00.00 Left-sided temporomandibular joint pain-dysfunction syndrome M26.622 Assessment & Plan Assessment & Plan (1) Annual physical exam: Code(s): Z00.00 - Encounter for general adult medical examination without abnormal findings Category: Medical Plan: Up-to-date on her mammogram and screening colonoscopy. Blood work has been ordered. (2) Left-sided temporomandibular joint pain-dysfunction syndrome: Code(s): M26.622 - Arthralgia of left temporomandibular joint Category: Medical Plan: Patient was advised to follow-up with her dentist. If her pain symptoms continue she would probably benefit from an intra-articular steroid injection. I will discuss this case with our online health and fitness coach. Orders: Orders Basic Metabolic Panel Today M26.622 - Arthralgia of left temporomandibular joint Complete Blood Count no Diff Today M26.622 - Arthralgia of left temporomandibular joint Liver Panel Today M26.622 - Arthralgia of left temporomandibular joint Lipid Panel Today M26.622 - Arthralgia of left temporomandibular joint Thyroid Stimulating Hormone Today M26.622 - Arthralgia of left temporomandibular joint UA and rflx microscopic Today M26.622 - Arthralgia of left temporomandibular joint Medications: Refilled albuterol sulfate 90 mcg/actuation 1 inh inhalation Q4-6H PRN 25.5 grams 3RF for wheezing fluticasone propion-salmeterol 500-50 mcg/dose 1 inh inhalation BID 60 ea 0RF amlodipine 5 mg PO DAILY 90 tabs 1RF
[2024-09-19 15:19] VITALS: BP 110/68; PULSE 76; O2SAT 97; BMI 26.6
== END 2024-09-19 15:53 | disposition home or self-care (01) ==
PROVIDERS: PCP Internal Medicine; Visit Provider Internal Medicine
DX: Z00.00 Encounter for general adult medical examination without abnormal findings (principal); M26.622 Arthralgia of left temporomandibular joint

== ENCOUNTER → 2024-09-19 15:16 | Outpatient (BNVA) | payer OTHER, SELFPAY | PROVIDERS: PCP Internal Medicine; Visit Provider Internal Medicine ==

== ENCOUNTER 2025-07-14 16:04 | Outpatient (REF) | payer OTHER, SELFPAY ==
--- OUTSIDE RECORDS SUMMARY | 2025-05-27 11:30 | XMS_ITS ---
Author Organization [employer] [facility] Address [address] [place] [address] Care Team Providers Care Pan Washer Hand Name Role Phone TY THAYER Primary Care Provider KIMBERLEY Daley Unavailable [phone] REASON FOR VISIT Annual ECHO VASC TECH Physical Encounters Encounter Location Date Provider Diagnosis [facility] [employer] [address] [place] [address] 05/27/2025 KIMBERLEY ADRIAN Plan Of Treatment Next Appt Details Provider Name:KIMBERLEY Taylor, 05/19/2026 03:30:00 PM, [address], [address], [place], [address], Progress Notes * ANTHONY RAJANADOB:1965 (60 yo F)Acc No.[id number]:05/27/2025 PROGRESS NOTES Patient: GYPSY DOWNING Provider: Tom ADRIAN MD :1965 A ge:59 Y S ex:Female Date:05/27/2025 Address:[address] [place], [place] [id number] Pcp:TY THAYER Subjective: * Chief Complaints: * 1 . Annual ECHO VASC TECH Physical. * Medical History: Objective: * Vitals: Assessment: Plan: * Treatment: * Images: Billing Information: * Visit Code: * Procedure Codes: * Electronic signature of KIMBERLEY ADRIAN MD on 07/14/2025 at 06:43 PM EDT Sign off status: Pending * Provider: Tom ADRIAN MD Date: 0 05/27/2025 Generated for Joleen carlos/Francheska/Jocelynitting on: 0 07/14/2025 06:43 PM EDT
--- NOTE | ~2025-07-14 | MM_ITS ---
EXAMINATION: MM SCREENING DIGITAL BREAST TOMOSYNTHESIS, BILATERAL CLINICAL INFORMATION: Screening. Asymptomatic. COMPARISON: Mammography: Comparison is made with available priors TECHNIQUE: Digital breast mammography with tomosynthesis is performed in both the craniocaudal and mediolateral oblique views along with computer-aided detection (CAD). FINDINGS: There are scattered areas of fibroglandular density (ACR BI-RADS breast composition Category b). Left: Focal asymmetry upper outer breast middle depth slightly increased from priors. No suspicious calcifications or other abnormal findings. Right: There are no significant masses, abnormal calcifications, or other abnormalities. MM/MM tomosynthesis screening BI IMPRESSION: Additional imaging is recommended ASSESSMENT: BI-RADS BI-RADS 0 - Incomplete: Needs additional Imaging. RECOMMENDATION: 1. Additional views of the left breast. 2. Targeted ultrasound if warranted after review of the additional views. 3. Radiology department staff will contact the patient for additional imaging. Additional Imaging required This examination should not preclude the clinical evaluation of a suspicious palpable abnormality. This patient's information was entered into a reminder system with a target due date for their next mammogram. Electronically signed by: Alina Snyder DO 07/18/2025 05:24 PM EDT
--- OUTSIDE RECORDS SUMMARY | 2025-07-14 18:43 | XMS_ITS | Clinical Summary ---
Author Organization [facility] Address [address] [place] [address] Care Team Providers Care Hoeing Row Boss Name Role Phone Jf Angulo DO Primary Care Provider [phone] Social History Tobacco Use Types Packs/Day Years Used Date Smoking Tobacco: Never Assessed Sex and Gender Information Value Date Recorded Sex Assigned at Not on file Gender Identity Not on file Sexual Orientation Not on file Plan of Treatment Health Maintenance Due Date Last Done Comments Hepatitis B Vaccines (1 of 3 - 3-dose series) 1965 Hepatitis C Screening 1965 COVID-19 Vaccine (#1) 1965 Depression Screening 1979 Preventative Health Evaluation 1985 DTap / Tdap / Td (1 - Tdap) 1986 Cervical Cancer Screening (P ap Smear) 1988 Colon Cancer Screening (Colonoscopy) 2012 Breast Cancer Screening (Mammogram) 2017 Shingrix-Zoster Vaccine (1 of 2) 2017 Influenza Vaccine (#1) 2025 Pneumococcal Vaccine Aged Out No long er eligible based on patient's age to complete this topic RSV Ped < 20 months Aged Out No longe r eligible based on patient's age to complete this topic Advance Directives For more information, please contact: [phone] Documents on File Type Date Recorded 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
--- OUTSIDE RECORDS SUMMARY | 2025-07-14 18:43 | XMS_ITS | Clinical Summary ---
Author Organization [facility] Address [address] [place] [address] Care Team Providers Care Toxicology Teacher Name Role Phone Jf Angulo MD Primary Care Provider [phone] Social History Tobacco Use Types Packs/Day Years Used Date Smoking Tobacco: Never Assessed Comments Unknown Sex and Gender Information Value Date Recorded Sex Assigned at Not on file Legal Sex Female 12:16 AM EST Gender Identity Not on file Sexual Orientation Not on file Plan of Treatment Health Maintenance Due Date Last Done Comments Breast Cancer Screening 1965 DTaP,Tdap,and Td Vaccines (1 - Tdap) 1986 Hepatitis B Vaccines (1 of 3 - 19+ 3-dose series) 1986 Cervical Cancer Screening: P ap Smear 1988 Pneumococcal Vaccine: 50+ Ye ars (1 of 1 - PCV) 2017 Zoster Vaccines (1 of 2) 2017 Depression Screening 11/06/2024 COVID-19 Vaccine (1 - 2023-2 5 season) 2025 Influenza Vaccine (#1) 2025 HIB Vaccines Aged Out No longer eligi ble based on patient's age to complete this topic HPV Vaccines Aged Out No longer eligi ble based on patient's age to complete this topic Hepatitis A Vaccines Aged Out No long er eligible based on patient's age to complete this topic IPV Vaccines Aged Out No longer eligi ble based on patient's age to complete this topic MMR Vaccines Aged Out No longer eligi ble based on patient's age to complete this topic Meningococcal ACWY Vaccine Aged Out N o longer eligible based on patient's age to complete this topic Meningococcal B Vaccine Aged Out No l onger eligible based on patient's age to complete this topic RSV Immunization Patients Un claudette 20 months Aged Out No longer eligible b ased on patient's age to complete this topic Varicella Vaccines Aged Out No longer eligible based on patient's age to complete this topic Care Teams Toxicology Teacher Relationship Specialty Start Date End Date Jf Angulo MD [address] [place] [address] [address] MONICA Julian PCP - General 12/11/17
--- OUTSIDE RECORDS SUMMARY | 2025-07-14 18:44 | XMS_ITS | Patient Health Record ---
Author Organization [employer] [facility] Address [address] [facility] [address] [place] [address] Care Team Providers Care Regional Truck Driver Name Role Phone TY THAYER Primary Care Provider KIMBERLEY Daley Unavailable [phone] Allergies Allergen (clinical drug ingredient) Drug/Non Drug Allergy documented on EMR Reaction Allergy Type Onset Date Status green dye (uncoded) anaphylaxis Allergy Active red dye (uncoded) anaphylaxis Allergy Active Blue Dyes (Parenteral) anaphylaxis Drug Allergy Active Latex Latex anaphylaxis Allergy Active progesterone Progesterone confusion Drug Allergy A ctive Reason For Referral No Information Medications Medication SIG (Take, Route, Frequency, Duration) Notes Start Date End Date Status amLODIPine Besylate 5 MG 1 tablet Orally Once a day; Duration: 30 day(s) Active Estradiol 0.1 MG/GM 1 gram Vaginal Two t imes a Week; Duration: 365 days 05/12/2023 Active Atorvastatin Calcium 10 MG 1 tablet Oral ly Once a day; Duration: 30 day(s) Active traZODone HCl 50 MG TAKE 1 TABLET AT BED TIME NEEDED FOR SLEEP Oral; Duration: 90 Days Active EpiPen Active Multivitamin Active Advair Diskus 250-50 MCG/DOSE 1 puff Inhalation Twice a day Active ProAir HFA 108 (90 Base) MCG/ACT 1 puff as needed Inhalation every 4 hrs Active Social History Tobacco Use: Social History Observation Description Date Details (start date - stop date) Never Smoker NA - NA Tobacco Use/Smoking Question Answer Notes Are you a nonsmoker Alcohol Screen (Audit-C) Question Answer Notes Did you have a drink contain ing alcohol in the past year? Yes How often did you have a dri nk containing alcohol in the past year? Monthly or less (1 point) How many drinks did you have on a typical day when you were drinking in the past year? 1 or 2 drinks (0 point) How often did you have 6 or more drinks on one occasion in the past year? Never (0 point) Points 1 Interpretation Negative Problems Problem Type SNOMED Code ICD Code Onset Dates Problem Status W/U Status Risk Notes Problem Postmenopausal atrophic vaginitis (28366263) Postmenopausal atrophic vaginitis (N95.2) Active confirmed Problem Angina pectoris with documented spasm (14982536) Angina pectoris with documented spasm (I20.1) Active confirmed Problem Mild intermittent asthma (910573139) Mild intermittent asthma, uncomplicated (J45.20) Active confirmed Problem Left ventricular failure (39860101) Left ventricular failure, unspecified (I50.1) Active confirmed Problem COVID-19 (459909903) COVID-19 (U07.1) Active confirmed Vital Signs Temperature 97.8 degrees Fahrenheit 05/15/2025 Blood pressure diastolic 78 mm Hg 05/15/2025 Height 64 in 05/15/2025 Blood pressure systolic 128 mm Hg 05/15/2025 Weight 163 lbs 05/15/2025 BMI 27.98 kg/m2 05/15/2025 Encounters Encounter Location Date Provider Diagnosis [address] [place] [address] 05/15/2025 KIMBERLEY ADRIAN Encounter for gynecological examination (general) (routine) without abnormal findings Z01.419 ; Encounter for screening mammogram for malignant neoplasm of breast Z12.31 and Postmenopausal atrophic vaginitis N95.2 Assessments Encounter Date Diagnosis (ICD Code) Assessment Notes Treatment Notes Treatment Clinical Notes Section Notes 05/15/2025 Encounter for gynecological examination (general) (routine) without abnormal findings (ICD-10 - Z01.419) During the visit, the following areas of concern were addressed: Discussed cervical cancer screening with either cytology alone every 3 years or high risk HPV co-testing every 5 years as per ASCCP guidelines. Advised continued annual pelvic exams. Patient encouraged to increase her level of exercise. SBE technique encouraged/tau ght. Patient reminded when annual mammogram is due. Patient encouraged to keep colon screening up to date. 05/15/2025 Encounter for screening mammogram for malignant neoplasm of breast (ICD-10 - Z12.31) 05/15/2025 Postmenopausal atrophic vaginitis (ICD-10 - N95.2) Plan Of Treatment Pending Test Test Name Order Date MM Digital Screening Mammogram 3D 2021 MM Digital Screening Mammogram 3D 2022 MM Digital Screening Mammogram 3D 2023 MM Digital Screening Mammogram 3D 2024 Next Appt Details Provider Name:KIMBERLEY HUGHES Brandon, 05/19/2026 03:30:00 PM, [address], [address], [place], [address], Insurance Providers Payer Name Payer Address Payer Phone Subscriber Number Group Number Insured Name Patient Relationship to Insured Coverage Start Date Coverage End Date [facility] [address] [place] [address] [id number] GYPSY RAJAN Self - patient is the insured Medical (General) History Medical History History ICD Code Angina pectoris with documented spasm I2 0.1 Mild intermittent asthma, uncomplicated J45.20 COVID-19 U07.1 Left ventricular failure, unspecified I5 0.1 Surgical History Surgery Date(Month/Year) Tonsillectomy 1985 Exploratory Laparotomy 1996 C- Section 1997 C- Section 2006 Hysterectomy - supracervical 2015 Cardiac Cath 05/2020 Rt Hip Replacement 2020 Hospitalization History Reason Date(Month/Year) Evaluation for chest pain 05/2020 See Surgical Hx
--- OUTSIDE RECORDS SUMMARY | 2025-07-14 18:44 | XMS_ITS | Patient Health Record ---
Author Organization [facility] Address [address] [place] [id number] Care Team Providers Care Travel Counselor [employer] Name Role Phone Mer Marks M.D. Primary Care Provider Un available Anton Smith Jr Unavailable [phone] Allergies Allergen (clinical drug ingredient) Drug/Non Drug Allergy documented on EMR Reaction Allergy Type Onset Date Status Latex Gloves Unknown Drug Allergy Acti ve multiple food allergies (uncoded) Unknown Allergy Active no red,blue,green dye----colored meds (uncoded) Unknown Allergy Active Reason For Referral No Information Medications Medication SIG (Take, Route, Frequency, Duration) Notes Start Date End Date Status Ventolin HFA 108 (90 Base) MCG/ACT 2 puffs as needed Inhalation every 6 hrs/prn Activ e Advair Diskus 250-50 MCG/DOSE 1 puff Inhalation Twice a day Active Colyte with Flavor Packs 240 GM As directed Orally Over the specified time. for 1 day(s) Active Social History Tobacco Use: Social History Observation Description Date Details (start date - stop date) Never Smoker NA - NA Tobacco Use/Smoking Question Answer Notes Patient is a nonsmoker Alcohol Screen Question Answer Notes Did you have a [...] Problem Status W/U Status Risk Notes Problem 606284236 Colon cancer screening (Z12.11) Active confirmed Problem 83563804 Encounter for other preprocedural examination (Z01.818) Active confirmed Plan Of Treatment Future Test Test Name Order Date COLONOSCOPY 08/23/2018 Insurance Providers Payer Name Payer Address Payer Phone Subscriber Number Group Number Insured Name Patient Relationship to Insured Coverage Start Date Coverage End Date [employer] [address] [place] [address] [id number] GYPSY RAJAN Self - patient is the insured Medical (General) History Medical History History ICD Code asthma Denies [place],DM,CVA,renal disease Surgical History Surgery Date(Month/Year) tonsillectomy 1984 hysterectomy 2014 section 1997,2006 fibroid removal 1990
== END 2025-07-14 16:05 | disposition home or self-care (01) ==
LOC: HO.MAMMO 16:04
PROVIDERS: PCP Internal Medicine; Visit Provider Internal Medicine
DX: Z12.31 Encounter for screening mammogram for malignant neoplasm of breast (principal)
CPT/HCPCS: 77063; 77067

== ENCOUNTER → 2025-07-14 16:15 | Outpatient (BNV) | payer OTHER, SELFPAY | PROVIDERS: PCP Internal Medicine; Visit Provider Internal Medicine | DX: Z12.31 Encounter for screening mammogram for malignant neoplasm of breast (principal) | CPT/HCPCS: 77063; 77067 ==

== ENCOUNTER 2025-08-11 13:52 | Outpatient (REF) | payer OTHER, SELFPAY ==
--- OUTSIDE RECORDS SUMMARY | 2025-05-27 11:30 | XMS_ITS ---
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 PUMPER Physical Encounters Encounter Location Date Provider Diagnosis [facility] [employer] [address] [place] [address] 05/27/2025 KIMBERLEY ADRIAN Plan Of Treatment Next Appt Details Provider Name:KIMBERLEY Taylor, 05/19/2026 03:30:00 PM, [address], [address], [place], [address], Progress Notes * ANTHONY RAJANADOB:1965 (60 yo F)Acc No.[id number]:05/27/2025 PROGRESS NOTES Patient: GYPSY DOWNING Provider: Tom ADRIAN MD :1965 A ge:59 Y S ex:Female Date:05/27/2025 Address:[address] [place], [place] [id number] Pcp:TY THAYER Subjective: * Chief Complaints: * 1 . Annual OIL PUMPER Physical. * Medical History: Objective: * Vitals: Assessment: Plan: * Treatment: * Images: Billing Information: * Visit Code: * Procedure Codes: * Electronic signature of KIMBERLEY ADRIAN MD on 08/11/2025 at 04:19 PM EDT Sign off status: Pending * Provider: Tom ADRIAN MD Date: 0 05/27/2025 Generated for Joleen carlos/Francheska/Jocelynitting on: 1 04:19 PM EDT
--- NOTE | ~2025-08-11 | MM_ITS ---
EXAMINATION: MM DIAGNOSTIC DIGITAL BREAST TOMOSYNTHESIS, LEFT Limited left breast ultrasound. CLINICAL INFORMATION: Call back from screening for focal asymmetry in the upper outer left breast. COMPARISON: Mammography: Priors on PACS. TECHNIQUE: Digital breast tomosynthesis is performed in both the craniocaudal and mediolateral oblique views along with computer-aided detection (CAD). Synthesized 2D images are generated from the tomosynthesis. FINDINGS: There are scattered areas of fibroglandular density. Focal asymmetry upper outer breast middle depth persists is a circumscribed oval mass. No suspicious calcifications or other abnormal findings. Targeted color Doppler ultrasound scanning in the left breast from 1-5 o'clock demonstrates an area of adjacent probable minimally complicated cysts with intervening breast tissue at 3:00 5 cm from the nipple measuring 3 x 2 x 3 mm. This is a probable correlate for the focal asymmetry on mammography. MM/MM tomosynthesis added views L IMPRESSION: Probably benign area of adjacent minimally complicated cysts with intervening breast tissue in the upper outer left breast at 3:00 5 cm from the nipple. Recommend 6 month follow-up ultrasound for further evaluation of stability. ASSESSMENT: BI-RADS Category 3: Probably benign RECOMMENDATION: 6 Month F/U Results were provided to the patient at time of visit by the technologist. This patient's information was entered into a reminder system with a target due date for their next mammogram. Electronically signed by: Alina Snyder DO 08/11/2025 03:36 PM EDT
--- OUTSIDE RECORDS SUMMARY | 2025-08-11 16:19 | XMS_ITS | Clinical Summary ---
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
--- OUTSIDE RECORDS SUMMARY | 2025-08-11 16:20 | XMS_ITS | Patient Health Record ---
Author Organization [facility] Address [address] [place] [id number] Care Team Providers Care Network Account Manager Name Role Phone Mer Marks M.D. Primary Care Provider Un available Anton Smith Jr Unavailable Allergies Allergen (clinical drug ingredient) Drug/Non Drug [...] Problem Status W/U Status Risk Notes Problem 900572012 Colon cancer screening (Z12.11) Active confirmed Problem 03445986 Encounter for other preprocedural examination (Z01.818) Active confirmed Plan Of Treatment Future Test Test Name Order Date COLONOSCOPY 08/23/2018 Insurance Providers Payer Name Payer Address Payer Phone Subscriber Number Group Number Insured Name Patient Relationship to Insured Coverage Start Date Coverage End Date [employer] [address] [place] [address] [id number] GYPSY RAJAN Self - patient is the insured Medical (General) History Medical History History ICD Code asthma Denies [place],DM,CVA,renal disease Surgical History Surgery Date(Month/Year) tonsillectomy 1984 hysterectomy 2014 section 1997,2006 fibroid removal 1990
--- OUTSIDE RECORDS SUMMARY | 2025-08-11 16:20 | XMS_ITS | Clinical Summary ---
Author Organization [facility] Address [address] [place] [address] Care Team Providers Care Patch Washer Name Role Phone Jf Angulo MD Primary Care Provider [phone] Social History Tobacco Use Types Packs/Day Years [...] 5 season) 2025 Influenza Vaccine (#1) 2025 RSV Immunization Adult Patie nts (1 - 1-dose 75+ series) 2042 HIB Vaccines Aged Out No longer eligi [...] age to complete this topic Care Teams Patch Washer Relationship Specialty Start Date End Date Jf Angulo MD [address] [place] [address] [address] MONICA Julian PCP - General 12/11/17
--- OUTSIDE RECORDS SUMMARY | 2025-08-11 16:20 | XMS_ITS | Patient Health Record ---
Author Organization [facility] Address [address] [place] [address] Care Team Providers Care Administrative Volunteer Name Role Phone TY THAYER Primary Care Provider KIMBERLEY Daley Unavailable [phone] Allergies Allergen (clinical drug ingredient) Drug/Non Drug [...] Status Risk Notes Problem Postmenopausal atrophic vaginitis (81367241) Postmenopausal atrophic vaginitis (N95.2) Active confirmed Problem Angina pectoris with documented spasm (68016339) Angina pectoris with documented spasm (I20.1) Active confirmed Problem Mild intermittent asthma (277305328) Mild intermittent asthma, uncomplicated (J45.20) Active confirmed Problem Left ventricular failure (69936822) Left ventricular failure, unspecified (I50.1) Active confirmed Problem COVID-19 (696015242) COVID-19 (U07.1) Active confirmed Vital Signs Temperature 97.8 degrees Fahrenheit 05/15/2025 Blood pressure diastolic 78 mm Hg 05/15/2025 Height 64 in 05/15/2025 Blood pressure systolic 128 mm Hg 05/15/2025 Weight 163 lbs 05/15/2025 BMI 27.98 kg/m2 05/15/2025 Encounters Encounter Location Date Provider Diagnosis [address] [place] [id number] 05/15/2025 KIMBERLEY ADRIAN Encounter for gynecological examination [...] Name:KIMBERLEY HUGHES Brandon, 05/19/2026 03:30:00 PM, [address], [address], [place], [address], Insurance Providers Payer Name Payer Address Payer Phone Subscriber Number Group Number Insured Name Patient Relationship to Insured Coverage Start Date Coverage End Date [facility] [address] [place] [address] [id number] GYPSY RAJAN Self - patient is the [...]
== END 2025-08-11 13:53 | disposition home or self-care (01) ==
LOC: HO.MAMMO 13:52
PROVIDERS: PCP Internal Medicine; Visit Provider Internal Medicine
DX: N64.89 Other specified disorders of breast (principal)
CPT/HCPCS: 76642; 77061; 77065

== ENCOUNTER → 2025-08-11 14:00 | Outpatient (BNV) | payer OTHER, SELFPAY | PROVIDERS: PCP Internal Medicine; Visit Provider Internal Medicine | DX: R92.8 Other abnormal and inconclusive findings on diagnostic imaging of breast (principal) | CPT/HCPCS: 76642; 77061; 77065 ==

== ENCOUNTER 2025-10-09 15:12 | Outpatient (AMB) | payer OTHER, SELFPAY ==
--- OUTSIDE RECORDS SUMMARY | 2025-05-27 10:30 | XMS_ITS ---
Author Organization [employer] Address [address] [facility] [address] [place] [address] Care Team Providers Care Sales Support Representative Name Role Phone TY THAYER Primary Care Provider KIMBERLEY Daley Unavailable [phone] REASON FOR VISIT Annual LAND EXAMINER Physical Encounters Encounter Location Date Provider Diagnosis [facility] [employer] [address] [place] [address] 05/27/2025 KIMBERLEY ADRIAN Plan Of Treatment Next Appt Details Provider Name:KIMBERLEY Taylor, 05/19/2026 03:30:00 PM, [address], [address], [place], [address], Progress Notes * ANTHONY RAJANADOB:1965 (60 yo F)Acc No.[id number]:05/27/2025 PROGRESS NOTES Patient: GYPSY DOWNING Provider: Tom ADRIAN MD :1965 A ge:59 Y S ex:Female Date:05/27/2025 Address:[address] [place], [place] [id number] Pcp:TY THAYER Subjective: * Chief Complaints: * 1 . Annual LAND EXAMINER Physical. * Medical History: Objective: * Vitals: Assessment: Plan: * Treatment: * Images: Billing Information: * Visit Code: * Procedure Codes: * Electronic signature of KIMBERLEY ADRIAN MD on 10/09/2025 at 09:28 PM EST Sign off status: Pending * Provider: Tom ADRIAN MD Date: 0 05/27/2025 Generated for Joleen carlos/Francheska/Mauro on: 1 12/10/2024 09:28 PM EST
--- NOTE | 2025-10-09 15:20 | A.OFFPC_ITS ---
Vital Signs 10/09/25 15:21 Height 5 ft 4 in Weight 166 lb 4 oz BMI 28.5 BP 136/78 Blood Pressure Location Lt brachial Position Sitting Pulse 63 Pulse Source Pulse Oximeter Temp 96.9 F Temp Source Temporal Artery Scan Pulse Oximetry (%) 97 Oxygen Delivery Method Room Air Intake Visit Reasons: pe Intake Note: Patient is here today for a physical. Optometric Tech Required: No Carpenter Inspector: Not Required per policy Accompanied by: Self / Same As Patient Allergies blue dye (BLUE DYE) Allergy (Severe, Verified 10/09/25 15:21) ANAPHYLAXIS latex (LATEX) Allergy (Severe, Verified 10/09/25 15:21) ANAPHYLAXIS red dye (RED DYE) Allergy (Severe, Verified 10/09/25 15:21) ANAPHYLAXIS tree nut (TREE NUT) Allergy (Severe, Verified 10/09/25 15:21) ANAPHYLAXIS progesterone (PROGESTERONE) Allergy (Unknown, Verified 10/09/25 15:21) mental confusion FRUIT Allergy (Severe, Uncoded 10/09/25 15:21) ANAPHYLAXIS GREEN DYE Allergy (Severe, Uncoded 10/09/25 15:21) ANAPHYLAXIS VEGETABLES,FRESH Allergy (Severe, Uncoded 10/09/25 15:21) ANAPHYLAXIS Tobacco use date assessed: 10/09/25 Dental Screening Dental Screen Date: 10/09/25 Did you have a dental visit in the last 12 months?: Yes Did you have a dental problem in the last 6 months where you did not have access to dental care?: No Was dental information given to patient?: Patient has dentist HPI HPI Comments History of Present Illness Details History of Present Illness - The patient is a 60-year-old female pr esenting for an annual physical with a concern for significant weight gain. - Over the past year and a half, she has experienced progressive weight gain, with her weight increasing from the high 140s to her current weight of 165 lbs, despite efforts to exercise. - She attributes the weight gain to a me nopausal hormonal shift, noting she had a hysterectomy in 2015. - The patient exercises 3-4 times a week at a gym, alternating between cardio on a treadmill for 45 minutes and weight machine circuits for about an hour. - Her diet mainly consists of chicken, s alads, and nuts, and she avoids beef, steak, rice, and pasta due to allergies. - She takes supplements including an ove r-50 multivitamin and extra vitamin D3. - Her medical history is notable for a v entricular weakness, for which she takes amlodipine and a statin, and a chronic but controlled TMJ issue. - She uses Advair daily, has an albutero l inhaler, and carries nitroglycerin, which she has never used. - Her last blood work was in September 25, and her health screenings, including a mammogram and colonoscopy, are up to date. Social History - Diet: The patient reports she eats manny in due to allergies, primarily consuming chicken, salad, and nuts like peanuts. - She avoids beef, steak, and most rice and pasta. - She has recently started using Premier Protein shakes and eats low-sugar yogurt. - She avoids cookies and sodas, using ze ro-sugar creamer in the coffee she brings to work. - She does not consistently track her ca loric intake. - Exercise: The patient exercises three to four times a week at [employer] for 45 to 75 minutes per session. - Her routine includes cardio on the jeanine admill and strength training using circuit machines, targeting different muscle groups like arms, legs, and abs. - Functional Status: The patient works a nd is active, although she recently missed a week at the gym after a fall in a parking lot. Results - Labs: Last blood work was completed in September 2023, which included a thyroid check. - Screenings: A mammogram has been compl eted. - A colonoscopy was performed at age 52. [facility] Medical History (Updated 09/20/24 @ 14:13 by Randal Tanner MD) Left-sided temporomandibular joint pain-dysfunction syndrome Severe allergy to latex Asthma History of blood transfusion LVH (left ventricular hypertrophy) History of arteriography Osteoarthritis of right hip Unilateral primary osteoarthritis, right hip Surgical History History of hip replacement Hx of exploratory laparotomy Hx of wisdom tooth extraction Hx of local excision of skin lesion Hx of colonoscopy (~08/21/18) H/O vaginal hysterectomy History of tonsillectomy History of section Family History Father History of pancreatic cancer History of kidney cancer Mother History of cancer of ethmoid sinus Social History Household Members: Family Housing: House Are you a primary director of managed care to a significant other at home: No Do you presently have visiting nurse or other home services: No Alcohol intake: current Alcohol intake frequency: holidays/special occasions only Comment: pt sleeping Patient Tobacco Use Status: Never used Tobacco e-Cigarette/Vaping Use: Never Used Second Hand Smoke Exposure: No service: No Current occupational status: employed 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 1. Little interest or pleasure in doing things: not at all 2. Feeling down, depressed, or hopeless: not at all 3. Trouble falling or staying asleep, or sleeping too much: not at all 4. Feeling tired or having little energy: not at all 5. Poor appetite or overeating: not at all 6. Feeling bad about yourself - or that you are a failure or have let yourself or your family down: not at all 7. Trouble concentrating on things, such as reading the newspaper or watching television: not at all 8. Moving or speaking so slowly that other people could have noticed. Or the opposite - being so fidgety or restless that you have been moving around a lot more than usual: not at all 9. Thoughts that you would be better off or of hurting yourself in some way: not at all Total score: 0 Depression Screening Interpretation: Negative Depression Screening Done: Yes Source: Developed by Drs. Santi Marrero, Enedelia Altman, Amandeep Dietrich and colleagues, with an educational raimundo from [employer]. Thrive Questionnaire Date Thrive assessed: 10/09/25 I am a: Patient What is your living situation today?: I have a steady place to live Within the past 12 months, did the food you bought not last and you didn't have the money to get more?: Never true Within the past 12 months, did you worry whether your food would run out before you got money to buy more?: Never true Do you have trouble paying for medicines?: No Do you have trouble getting transportation to medical appointments?: No Do you have trouble paying your heating and electricity bill?: No Do you have trouble taking care of your child, family member or friend?: No Do you have trouble with day-to-day activities such as bathing, preparing meals, shopping, managing finances, etc.?: No Are you currently unemployed and looking for a job?: No Are you interested in more education?: No Please select the resources that you would like help with: None Currently or been in a relationship where the following occur: No concerns reported THRIVE Score: 0 AUDIT C Alcohol Use Questionnaire (AUDIT-C) 1. How often do you have a drink containing alcohol?: Monthly or less 2. How many drinks containing alcohol do you have on a typical day when you are drinking?: 1 or 2 3. How often do you have six or more drinks on one occasion?: Never Total Score: 1 JACKI-7 AMB Questionnaire JACKI-7 Date JACKI - 7 assessed: 10/09/25 Feeling nervous, anxious, or on edge: 0 = Not at all Not being able to stop or control worryin = Not at all Worrying too much about different things: 0 = Not at all Trouble relaxin = Not at all Being so restless that it is hard to sit still: 0 = Not at all Becoming easily annoyed or irritable: 0 = Not at all Feeling afraid as if something awful might happen: 0 = Not at all Total JACKI-7 score (0-4 normal; 5-9 mild; 10-14 moderate; 15-21 severe): 0 Source: Developed by Drs. Santi Marrero, Enedelia Altman, Amandeep Dietrich and colleagues, with an educational raimundo from [employer]. Review of Systems Narrative Review of Systems - Constitutional: Reports progressive weight gain. - Eyes: Reports good vision but has astigmatism, causing difficulty with driving at night. - Ears: Denies hearing difficulties. - Genitourinary: Denies urinary incontinence. - Musculoskeletal: Reports knee pain when using a stationary bike and back pain with treadmill incline. - Reports chronic TMJ symptoms which are under control. - Reports a recent fall. - Neurological/Psychiatric: Reports using trazodone as needed for sleep. Physical exam (Primary Care) Vital Signs: Last Vital Signs Temp 96.9 F 10/09/25 15:21 Pulse 63 10/09/25 15:21 BP 136/78 10/09/25 15:21 Pulse Ox 97 10/09/25 15:21 Oxygen Delivery Method Room Air 10/09/25 15:21 BMI result Body Mass Index 28.5 Tobacco/Smoking Status: Tobacco use Status Tobacco use date assessed 10/09/25 10/09/25 15:26 Patient Tobacco Use Status Never used Tobacco 10/09/25 15:26 e-Cigarette/Vaping Use Never Used 10/09/25 15:26 PHQ-9: PHQ-9 Score PHQ-9: Total score 0 10/09/25 15:48 Depression Screening Interpretation: Negative Thrive Assessment: Date of Thrive Assessment Date Thrive assessed 10/09/25 10/09/25 15:26 Currently or been in a relationship where the following occur: No concerns reported Narrative Physical Exam General: Cooperative and healthy appearing Nutritional Appearance: Well nourished Orientation/consciousness: Patient oriented x3 Limitations: No limitations Head: Normal to inspection General: Appearance normal, both eyes and all related structures Neck: Normal visual inspection Chest: Normal palpation of entire chest wall Respiratory: Normal respiratory effort Neurology: Patient oriented x3 Coding Level of Care Code Est Pt Prev Care 40-64y(56619) Add On Preventative Visit Only Diagnoses Annual physical exam Z00.00 Assessment & Plan Assessment & Plan (1) Annual physical exam: Code(s): Z00.00 - Encounter for general adult medical examination without abnormal findings Category: Medical Plan Plan - Will order fasting blood work, to include a cholesterol panel. - Counseled the patient on dietary changes for weight loss, including tracking calories with a goal of less than 1300 per day and cutting out sugars and reducing carbohydrates. - Recommended modifying her treadmill exercise to include high-intensity intervals rather than maintaining a steady pace. - Discussed weight loss medications, including injectable options, and advised the patient to first check with her insurance provider regarding coverage. - Will send 90-day prescription refills for Advair, albuterol, and nitroglycerin to the patient's preferred [facility] pharmacy. - Patient declines the COVID-19 vaccine at this time. - Plan to follow up in 6 months. Discussion Notes I discussed the patient's concern regarding progressive weight gain. We reviewed her current exercise and diet habits. I provided counseling on lifestyle modifications, including tracking caloric intake to stay below 1300 calories for weight loss, reducing sugars and carbohydrates, and incorporating high-intensity interval training into her cardio workouts. We also discussed the possibility of weight loss medications, noting they can be expensive and that she should first check for insurance coverage. I will order new fasting blood work. I have sent refills for her Advair, albuterol, and nitroglycerin prescriptions. I advised a follow-up visit in six months to reassess her progress. Patient Instructions - Please go for fasting blood work as ordered; do not eat or drink anything after midnight the night before your test. - For weight loss, track your daily food intake and aim for no more than 1300 calories per day. - Reduce the amount of sugar and carbohydrates in your diet. - When using the treadmill, try changing your routine to include short bursts of high speed every few minutes instead of keeping a steady pace. - You can contact your insurance provider to ask if weight loss medications are covered under your plan. - Refills for your Advair, albuterol, and nitro prescriptions have been sent to your [facility] pharmacy. - Schedule a follow-up appointment in six months. Orders: Orders Lipid Panel 10/09/25 Z00.00 - Encounter for general adult medical examination without abnormal findings Liver Panel 10/09/25 Z00.00 - Encounter for general adult medical examination without abnormal findings UA and rflx microscopic 10/09/25 Z.00 - Encounter for general adult medical examination without abnormal findings Complete Blood Count no Diff 10/09/25 Z00.00 - Encounter for general adult medical examination without abnormal findings Basic Metabolic Panel 10/09/2500.00 - Encounter for general adult medical examination without abnormal findings Thyroid Stimulating Hormone 10/09/25 Z00.00 - Encounter for general adult medical examination without abnormal findings Medications: Refilled albuterol sulfate 90 mcg/actuation 1 inh inhalation Q4-6H PRN 25.5 grams 3RF for wheezing fluticasone propion-salmeterol 500-50 mcg/dose 1 inh inhalation BID 60 ea 0RF nitroglycerin 0.4 mg sublingual Q5M 25 tabs 0RF for angina
[2025-10-09 15:21] VITALS: BP 136/78; PULSE 63; TEMP 36.1; O2SAT 97; BMI 28.5
--- OUTSIDE RECORDS SUMMARY | 2025-10-09 21:29 | XMS_ITS | Patient Health Record ---
Author Organization [email or web address] [facility] Address [address] [place] [address] Care Team Providers Care Marine Firefighter Name Role Phone TY THAYER Primary Care Provider KIMBERLEY Daley Unavailable [phone] Allergies Allergen (clinical drug ingredient) Drug/Non Drug [...] Status Risk Notes Problem Postmenopausal atrophic vaginitis (23271478) Postmenopausal atrophic vaginitis (N95.2) Active confirmed Problem Angina pectoris with documented spasm (96841297) Angina pectoris with documented spasm (I20.1) Active confirmed Problem Mild intermittent asthma (208938601) Mild intermittent asthma, uncomplicated (J45.20) Active confirmed Problem Left ventricular failure (86463665) Left ventricular failure, unspecified (I50.1) Active confirmed Problem COVID-19 (061873521) COVID-19 (U07.1) Active confirmed Vital Signs Temperature 97.8 degrees Fahrenheit 05/15/2025 Blood pressure diastolic 78 mm Hg 05/15/2025 Height 64 in 05/15/2025 Blood pressure systolic 128 mm Hg 05/15/2025 Weight 163 lbs 05/15/2025 BMI 27.98 kg/m2 05/15/2025 Encounters Encounter Location Date Provider Diagnosis [address] [place] [id number] 05/15/2025 KIMBERLEY ADRIAN Encounter for gynecological examination [...] Name:KIMBERLEY HUGHES Brandon, 05/19/2026 03:30:00 PM, [address], [address], [place], [address], Insurance Providers Payer Name Payer Address Payer Phone Subscriber Number Group Number Insured Name Patient Relationship to Insured Coverage Start Date Coverage End Date [facility] [address] [place] [address] [id number] [id number] RAJAN Self - patient is the [...]
--- OUTSIDE RECORDS SUMMARY | 2025-10-09 21:29 | XMS_ITS | Patient Health Record ---
Author Organization [facility] Address [address] [place] [address] Care Team Providers Care Stringed Instrument Assembler Name Role Phone Mer Marks M.D. Primary Care Provider Un available Anton Smith Jr Unavailable Allergies Allergen (clinical drug ingredient) Drug/Non Drug Allergy documented on EMR Reaction Allergy Type Onset Date Status multiple food allergies (uncoded) Unknown Allergy Active no red,blue,green dye----colored meds (uncoded) Unknown Allergy Active Latex Gloves Unknown Drug Allergy Acti ve Reason For Referral No Information Medications Medication SIG (Take, Route, Frequency, Duration) Notes Start Date End Date Status Ventolin HFA 108 (90 Base) MCG/ACT Aerosol Solution 2 puffs as needed Inhalation every 6 hrs/prn Active Advair Diskus 250-50 MCG/DOSE Aerosol Powder Breath Activated 1 puff Inhalation Twice a day Active Colyte with Flavor Packs 240 GM Solution Reconstituted As directed Orally Over the specified time.; Duration: 1 day(s) Active Social History Tobacco Use: Social History Observation Description Date Details (start date - stop date) Never Smoker NA - NA Social History Drugs/Alcohol: Social Info Question Answer Notes Alcohol Screen Did you have a drink containing alcohol in the past year? Yes How often did you have a drink containing alcohol in the past year? Monthly or less (1 point) How many drinks did you have on a typical day when you were drinking in the past year? 1 or 2 drinks (0 point) How often did you have 6 or more drinks on one occasion in the past year? 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 Problems Problem Type SNOMED Code ICD Code Onset Dates Problem Status W/U Status Risk Notes Problem Colon cancer screening (010903119) Colon cancer screening (Z12.11) Active confirmed Problem Pre-procedure evaluation check (334269306) Encounter for other preprocedural examination (Z01.818) Active confirmed Plan Of Treatment Future Test Test Name Order Date COLONOSCOPY 08/23/2018 Insurance Providers Payer Name Payer Address Payer Phone Subscriber Number Group Number Insured Name Patient Relationship to Insured Coverage Start Date Coverage End Date [employer] [address] [place] [address] [phone] [id number] GYPSY RAJAN Self - patient is the insured Medical (General) History Medical History History ICD Code asthma Denies [place],DM,CVA,renal disease Surgical History Surgery Date(Month/Year) tonsillectomy 1984 hysterectomy 2014 section 1997,2006 fibroid removal 1990
--- OUTSIDE RECORDS SUMMARY | 2025-10-09 21:29 | XMS_ITS | Clinical Summary ---
Author Organization [facility] Prior to 04/05/[address] [place] [address] Care Team Providers Care Kaiawhina Name Role Phone Jf Angulo DO Primary Care Provider [phone] Social History Tobacco Use Types Packs/Day Years [...] Advance Directives For more information, please contact: [phone] Documents on File Type Date Recorded Patient Crisis Therapist Expl anation Advance Directive and Living Will 12/11/2017 7:08 AM Care Teams Kaiawhina Relationship Specialty Start Date End Date Jf Angulo DO [address] [place] [id number] PCP - General 12/11/17
--- OUTSIDE RECORDS SUMMARY | 2025-10-09 21:29 | XMS_ITS | Clinical Summary ---
Author Organization [facility] Address [address] [place] [address] Care Team Providers Care Care Advocate Name Role Phone Jf Angulo MD Primary Care Provider [phone] Social History Tobacco Use Types Packs/Day Years [...] Depression Screening 11/06/2024 COVID-19 Vaccine (1 - 2024-2 6 season) 2025 Influenza Vaccine (#1) 2025 RSV [...] age to complete this topic Care Teams Care Advocate Relationship Specialty Start Date End Date Jf Angulo MD [address] [place] [address] [address] MONICA Julian PCP - General 12/11/17
== END 2025-10-09 15:57 | disposition home or self-care (01) ==
LOC: HO.HMCH 15:13
PROVIDERS: PCP Internal Medicine; Visit Provider Internal Medicine
DX: Z00.00 Encounter for general adult medical examination without abnormal findings (principal)